=== PATIENT | female | born 1955 | race African-American/Black ===

== ENCOUNTER 2017-02-18 13:06 | Inpatient (IN) ==
[2017-02-18] MEDS ORDERED: NALOXONE 0.4 MG/ML VIAL IV PRN (13:24)
[2017-02-18] MEDS ORDERED: SODIUM CHLORIDE 0.9% 1,000 ML IV STA (13:24)
[2017-02-18] MEDS ORDERED: ALBUTEROL NEB SOLN 5 MG/ML 20 ML/BOTTLE CONT NEB STA (13:27)
[2017-02-18] MEDS ORDERED: ALBUTEROL 2.5 MG/3 ML NEB RESP TX ONE (13:33)
[2017-02-18 13:46] LABS: Basophils # 0.1 10*3/uL (0.0-0.2); Basophils % 0.6 % (0.0-0.8); Eosinophils # 0.2 10*3/uL (0.0-0.87); Eosinophils % 2.2 % (0.00-10.9); Hematocrit 41.7 VOL% (35.7-47.0); Hemoglobin 13.9 GM/DL (12.0-16.0); Immature Granulocytes % 0.3 %; Immature Granulocytes Absolute 0.03 #; Lymphocytes # 2.3 10*3/uL (1.4-4.0); Lymphocytes % 21.6 % (21.3-54.2); Mean Corpuscular HGB Conc 33.3 GM/DL (32-36); Mean Corpuscular Hemoglobin 29 PG (27-34); Mean Corpuscular Volume 86.9 FL (87-102); Mean Platelet Volume 11.4 FL (9.6-12.0); Neutrophils # 7.2 10*3/uL (1.4-7.4); Neutrophils % 66.3 % (38.7-73.9); White Blood Count 10.8 T/CUMM (4-12)
[2017-02-18 13:50] LABS: Platelet Count 192 T/CUMM (130-400)
[2017-02-18 14:04] LABS: Acetaminophen < 2.0 UG/ML (10-30); Salicylate 3.5 MG/DL (2.8-20)
[2017-02-18 14:09] LABS: Alanine Aminotransferase 26 U/L (13-56); Albumin 3.5 G/DL (3.4-5.0); Alkaline Phosphatase 94 U/L (45-117); Aspartate Amino Transferase 33 U/L (0-37); Blood Urea Nitrogen 25 MG/DL (7-18); CKMB % 2.2 %; Calcium 8.6 MG/DL (8.5-10.1); Glucose 210 MG/DL (74-106); Osmolality,Calculated 286.5 MOS/KG (273-304); Potassium 3.9 MMOL/L (3.5-5.1); Sodium 139 MMOL/L (136-145); Total Protein 6.6 G/DL (6.4-8.3); Troponin I Only 0.025 NG/ML (0.00-0.045)
[2017-02-18 14:11] LABS: Apearance,Urine Slightly Hazy (Clear); Bacteria,Urine Many /HPF (Few); Bilirubin,Urine Negative (Negative); Blood, Urine Small mg/dL (Negative); Glucose,Urine (UA) 50 mg/dL (Negative); Ketones,Urine Negative (Negative); Nitrite,Urine Negative (Negative); Protein,Urine 100 MG/DL; RBC,Urine 1 /HPF (0-4); Squamous Epithelial Cell,Urine Occasional /HPF (0-10); Urine Color Yellow (Yellow); Urine Urobilinogen < 2.0 EU/DL (0.2-1.0); WBC,Urine 25 /HPF (0-6)
[2017-02-18 14:56] LABS: Barbiturates Screen,Urine Negative (Negative); Benzodiazepines Screen,Urine Negative (Negative); Cannabinoid Screen,Urine Negative (Negative); Opiate Screen,Urine Negative (Negative); Phencyclidine Screen,Urine Negative (Negative)
[2017-02-18] MEDS ORDERED: NALOXONE 4 MG in SODIUM CHLORIDE 0.9% 90 ML IV SCH (15:00)
[2017-02-18 15:03] LABS: ABG Base Excess -4.2 MMOL/L (-2.5-2.5); ABG HCO3 20.9 MMOL/L (20-26); ABG Oxygen Saturation 96.5 % (95-100); ABG PCO2 41.7 MM HG (35-48); ABG PH 7.324 (7.35-7.45); ABG PO2 86.6 MM HG (80-95); ABG TCO2 19.1 MMOL/L (23-27)
[2017-02-18] MEDS ORDERED: ETOMIDATE 20 MG/10 ML VIAL IV ONE ×2 (15:21→20:00)
[2017-02-18] MEDS ORDERED: PROPOFOL 1,000 MG/100 ML BOTTLE IV ONE (15:51)
[2017-02-18] MEDS: PROPOFOL 1,000 MG/100 ML BOTTLE IV SCH ×2 (16:00→23:38)
[2017-02-18] MEDS: cefTRIAXone 1,000 MG in SYRINGE 1 EACH IV SCH (17:11)
[2017-02-18] MEDS ORDERED: VECURONIUM 10 MG VIAL IV ONE (20:00)
[2017-02-18] MEDS ORDERED: SUCCINYLCHOLINE 200 MG/10 ML VIAL ONE (20:01)
[2017-02-19 04:51] LABS: ABG Base Excess -2.4 MMOL/L (-2.5-2.5); ABG HCO3 22.5 MMOL/L (20-26); ABG Oxygen Saturation 98.9 % (95-100); ABG PCO2 37.4 MM HG (35-48); ABG PH 7.383 (7.35-7.45); ABG TCO2 19.3 MMOL/L (23-27); Allen Test Positive; Pt O2 Delivery Device Ventilator
[2017-02-19 04:59] LABS: Basophils % 0.3 % (0.0-0.8); Eosinophils # 0.1 10*3/uL (0.0-0.87); Eosinophils % 1.5 % (0.00-10.9); Hemoglobin 13.5 GM/DL (12.0-16.0); Immature Granulocytes % 0.3 %; Immature Granulocytes Absolute 0.03 #; Lymphocytes # 1.4 10*3/uL (1.4-4.0); Lymphocytes % 14.5 % (21.3-54.2); Mean Corpuscular HGB Conc 32.9 GM/DL (32-36); Mean Corpuscular Hemoglobin 29 PG (27-34); Mean Platelet Volume 11.4 FL (9.6-12.0); Monocytes % 9.9 % (1.7-12.7); Neutrophils % 73.5 % (38.7-73.9); Platelet Count 190 T/CUMM (130-400); Red Blood Count 4.66 MC/CUMM (3.8-5.5); White Blood Count 9.6 T/CUMM (4-12)
[2017-02-19] MEDS ORDERED: SODIUM CHLORIDE 0.9% 250 ML IV ONE (05:15)
[2017-02-19 05:21] LABS: Albumin 3.1 G/DL (3.4-5.0); Bilirubin,Total 0.4 MG/DL (0.2-1.0); Calcium 8.7 MG/DL (8.5-10.1); Total Protein 5.9 G/DL (6.4-8.3)
[2017-02-19] MEDS: SODIUM CHLORIDE 0.9% 1,000 ML IV SCH ×2 (06:06→16:00)
[2017-02-19] MEDS: PROPOFOL 1,000 MG/100 ML BOTTLE IV SCH ×3 (07:52→17:55)
[2017-02-19] MEDS: cefTRIAXone 1,000 MG in SYRINGE 1 EACH IV SCH (16:17)
[2017-02-20] MEDS: PROPOFOL 1,000 MG/100 ML BOTTLE IV SCH (01:40)
[2017-02-20] MEDS: SODIUM CHLORIDE 0.9% 1,000 ML IV SCH ×3 (01:40→21:30)
[2017-02-20 05:20] LABS: Basophils # 0.1 10*3/uL (0.0-0.2); Basophils % 0.5 % (0.0-0.8); Eosinophils # 0.2 10*3/uL (0.0-0.87); Eosinophils % 1.9 % (0.00-10.9); Hematocrit 39.4 VOL% (35.7-47.0); Hemoglobin 12.5 GM/DL (12.0-16.0); Immature Granulocytes % 0.4 %; Immature Granulocytes Absolute 0.04 #; Lymphocytes # 1.4 10*3/uL (1.4-4.0); Mean Corpuscular HGB Conc 31.7 GM/DL (32-36); Mean Corpuscular Hemoglobin 29 PG (27-34); Mean Corpuscular Volume 90.8 FL (87-102); Mean Platelet Volume 11.6 FL (9.6-12.0); Monocytes # 0.8 10*3/uL (0.11-0.8); Monocytes % 8.8 % (1.7-12.7); Neutrophils % 73.4 % (38.7-73.9); Platelet Count 165 T/CUMM (130-400); Red Blood Count 4.34 MC/CUMM (3.8-5.5); Red Cell Distribution Width 14.6 % (9.3-17.3); White Blood Count 9.6 T/CUMM (4-12)
[2017-02-20 05:46] LABS: Calcium 8.1 MG/DL (8.5-10.1); Magnesium 2.2 MG/DL (1.8-2.4); Osmolality,Calculated 286.8 MOS/KG (273-304); Potassium 4.3 MMOL/L (3.5-5.1)
[2017-02-20 07:36] LABS: ABG Base Excess -5.6 MMOL/L (-2.5-2.5); ABG HCO3 19.8 MMOL/L (20-26); ABG Oxygen Saturation 98.2 % (95-100); ABG PH 7.334 (7.35-7.45); ABG TCO2 17.5 MMOL/L (23-27); Allen Test Positive; Pt O2 Delivery Device Ventilator
[2017-02-20 10:19] LABS: ABG Base Excess -6.2 MMOL/L (-2.5-2.5); ABG HCO3 19.4 MMOL/L (20-26); ABG Oxygen Saturation 98.4 % (95-100); ABG PH 7.332 (7.35-7.45); ABG TCO2 16.9 MMOL/L (23-27)
[2017-02-20] MEDS ORDERED: traZODone 50 MG TABLET PO PRN (11:06)
[2017-02-20] MEDS: risperiDONE 1 MG TABLET PO SCH (11:45)
[2017-02-20] MEDS: BENZTROPINE 1 MG TABLET PO SCH (11:45)
[2017-02-20] MEDS: SERTRALINE 50 MG TABLET PO SCH (11:45)
[2017-02-20] MEDS: cefTRIAXone 1,000 MG in SYRINGE 1 EACH IV SCH (17:00)
[2017-02-21 05:04] LABS: Calcium 7.7 MG/DL (8.5-10.1); Magnesium 1.9 MG/DL (1.8-2.4); Potassium 4.3 MMOL/L (3.5-5.1)
[2017-02-21] MEDS ORDERED: CEFUROXIME 250 MG TABLET PO SCH (09:00)
[2017-02-21] MEDS: risperiDONE 1 MG TABLET PO SCH (09:12)
[2017-02-21] MEDS: SERTRALINE 50 MG TABLET PO SCH (09:12)
[2017-02-21] MEDS: BENZTROPINE 1 MG TABLET PO SCH (09:12)
[2017-02-21] MEDS: SODIUM CHLORIDE 0.9% 1,000 ML IV SCH (12:16)
[2017-02-21 13:52] VITALS: BP 138/71
== END 2017-02-21 16:30 | DRG 918 ==
LOC: N.ED 13:06 → N.EDINP 14:26 → N.CC 16:40
PROVIDERS: ADMIT Internal Medicine; ATTEND Internal Medicine

== ENCOUNTER 2018-07-21 08:39 | Inpatient (IN) ==
[2018-07-21] MEDS ORDERED: hydrALAZINE 20 MG/1 ML VIAL IV STA (09:24)
[2018-07-21] MEDS ORDERED: ALBUTEROL/IPRATROPIUM 3 ML NEB RESP TX STA (09:24)
[2018-07-21 10:13] LABS: Basophils # 0.1 10*3/uL (0.0-0.2); Basophils % 0.4 % (0.0-0.8); Eosinophils % 0.3 % (0.00-10.9); Hematocrit 41.2 VOL% (35.7-47.0); Hemoglobin 12.5 GM/DL (12.0-16.0); Immature Granulocytes % 0.6 %; Immature Granulocytes Absolute 0.09 #; Lymphocytes # 1.1 10*3/uL (1.4-4.0); Lymphocytes % 7.6 % (21.3-54.2); Mean Corpuscular HGB Conc 30.3 GM/DL (32-36); Mean Corpuscular Volume 93.4 FL (87-102); Mean Platelet Volume 11.3 FL (9.6-12.0); Monocytes % 7.5 % (1.7-12.7); Neutrophils % 83.6 % (38.7-73.9); Platelet Count 187 T/CUMM (130-400); Red Blood Count 4.41 MC/CUMM (3.8-5.5); Red Cell Distribution Width 13.8 % (9.3-17.3); White Blood Count 14.2 T/CUMM (4-12)
[2018-07-21 10:30] LABS: Calcium 8.9 MG/DL (8.5-10.1); Osmolality,Calculated 282.5 MOS/KG (273-304)
[2018-07-21] MEDS ORDERED: cefTRIAXone 1,000 MG in SODIUM CHLORIDE 0.9% 100 ML IV STA (10:40)
[2018-07-21] MEDS ORDERED: SODIUM CHLORIDE 0.9% 1,000 ML IV STA (10:41)
[2018-07-21] MEDS ORDERED: cefTRIAXone 1,000 MG in SYRINGE 1 EACH IV STA (10:44)
[2018-07-21] MEDS ORDERED: ONDANSETRON 4 MG/2 ML VIAL IV PRN (10:49)
[2018-07-21] MEDS ORDERED: PROMETHAZINE 25 MG/1 ML VIAL IM PRN (10:49)
[2018-07-21] MEDS ORDERED: ACETAMINOPHEN 325 MG TABLET PO PRN (10:49)
[2018-07-21] MEDS ORDERED: ALBUTEROL 2.5 MG/3 ML NEB RESP TX PRN (10:56)
[2018-07-21] MEDS: DORNASE ALFA 2.5 MG/2.5 ML VIAL RESP TX SCH ×2 (11:01→19:12)
[2018-07-21] MEDS: ALBUTEROL/IPRATROPIUM 3 ML NEB RESP TX SCH ×2 (11:01→19:12)
[2018-07-21] MEDS: guaiFENesin/DM ER 600-30 MG TABLET PO SCH ×2 (13:38→21:59)
[2018-07-21] MEDS: PANTOPRAZOLE 40 MG TABLET PO SCH (13:38)
[2018-07-21] MEDS: risperiDONE 1 MG TABLET PO SCH (13:38)
[2018-07-21] MEDS: SODIUM CHLORIDE 0.9% 1,000 ML IV SCH ×2 (13:44→22:26)
[2018-07-21] MEDS: CLINDAMYCIN INJ 600 MG in PREMIX 1 EACH IV SCH ×2 (13:45→21:59)
[2018-07-21] MEDS: NEBIVOLOL 5 MG TABLET PO SCH (15:14)
[2018-07-21] MEDS: OLANZapine 5 MG TABLET PO SCH (15:14)
[2018-07-21] MEDS: LEVOFLOXACIN INJ 750 MG in PREMIX 1 EACH IV SCH (15:14)
[2018-07-21] MEDS: chlordiazePOXIDE 10 MG CAPSULE PO SCH ×2 (15:14→21:59)
[2018-07-22] MEDS: ALBUTEROL/IPRATROPIUM 3 ML NEB RESP TX SCH ×4 (00:56→18:40)
[2018-07-22 05:22] LABS: Basophils % 0.4 % (0.0-0.8); Eosinophils # 0.1 10*3/uL (0.0-0.87); Eosinophils % 0.7 % (0.00-10.9); Hematocrit 34.9 VOL% (35.7-47.0); Hemoglobin 10.5 GM/DL (12.0-16.0); Immature Granulocytes % 0.5 %; Immature Granulocytes Absolute 0.05 #; Lymphocytes # 1.2 10*3/uL (1.4-4.0); Mean Corpuscular HGB Conc 30.1 GM/DL (32-36); Mean Corpuscular Volume 93.8 FL (87-102); Mean Platelet Volume 11.8 FL (9.6-12.0); Neutrophils % 79.4 % (38.7-73.9); Platelet Count 168 T/CUMM (130-400); Red Blood Count 3.72 MC/CUMM (3.8-5.5); Red Cell Distribution Width 14.1 % (9.3-17.3); White Blood Count 10.9 T/CUMM (4-12)
[2018-07-22] MEDS: CLINDAMYCIN INJ 600 MG in PREMIX 1 EACH IV SCH ×3 (05:44→20:56)
[2018-07-22 05:54] LABS: Albumin 2.3 G/DL (3.4-5.0); Bilirubin,Total 0.4 MG/DL (0.2-1.0); Calcium 8.2 MG/DL (8.5-10.1); Total Protein 5.5 G/DL (6.4-8.3)
[2018-07-22] MEDS: SODIUM CHLORIDE 0.9% 1,000 ML IV SCH ×4 (06:20→17:35)
[2018-07-22] MEDS: DORNASE ALFA 2.5 MG/2.5 ML VIAL RESP TX SCH ×2 (07:51→18:40)
[2018-07-22] MEDS: chlordiazePOXIDE 10 MG CAPSULE PO SCH ×3 (08:11→20:55)
[2018-07-22] MEDS: OLANZapine 5 MG TABLET PO SCH (08:11)
[2018-07-22] MEDS: guaiFENesin/DM ER 600-30 MG TABLET PO SCH ×2 (08:11→20:55)
[2018-07-22] MEDS: risperiDONE 1 MG TABLET PO SCH (08:11)
[2018-07-22] MEDS: PANTOPRAZOLE 40 MG TABLET PO SCH (08:11)
[2018-07-22] MEDS: NEBIVOLOL 5 MG TABLET PO SCH (08:11)
[2018-07-22] MEDS: traZODone 50 MG TABLET PO PRN (20:55)
[2018-07-23] MEDS: ALBUTEROL/IPRATROPIUM 3 ML NEB RESP TX SCH ×4 (00:10→18:55)
[2018-07-23] MEDS: SODIUM CHLORIDE 0.9% 1,000 ML IV SCH ×4 (01:51→20:23)
[2018-07-23] MEDS: CLINDAMYCIN INJ 600 MG in PREMIX 1 EACH IV SCH ×3 (05:42→20:50)
[2018-07-23] MEDS: DORNASE ALFA 2.5 MG/2.5 ML VIAL RESP TX SCH ×2 (07:06→18:55)
[2018-07-23 07:13] LABS: Basophils % 0.2 % (0.0-0.8); Eosinophils # 0.1 10*3/uL (0.0-0.87); Eosinophils % 1.6 % (0.00-10.9); Hematocrit 35.2 VOL% (35.7-47.0); Hemoglobin 10.6 GM/DL (12.0-16.0); Immature Granulocytes % 0.5 %; Immature Granulocytes Absolute 0.04 #; Lymphocytes # 1.1 10*3/uL (1.4-4.0); Lymphocytes % 12.9 % (21.3-54.2); Mean Corpuscular HGB Conc 30.1 GM/DL (32-36); Mean Corpuscular Volume 93.4 FL (87-102); Mean Platelet Volume 10.6 FL (9.6-12.0); Monocytes % 9.9 % (1.7-12.7); Neutrophils % 74.9 % (38.7-73.9); Platelet Count 175 T/CUMM (130-400); Red Blood Count 3.77 MC/CUMM (3.8-5.5); Red Cell Distribution Width 14.2 % (9.3-17.3); White Blood Count 8.1 T/CUMM (4-12)
[2018-07-23 07:36] LABS: Calcium 8.8 MG/DL (8.5-10.1); Osmolality,Calculated 293.7 MOS/KG (273-304)
[2018-07-23] MEDS: OLANZapine 5 MG TABLET PO SCH (08:23)
[2018-07-23] MEDS: guaiFENesin/DM ER 600-30 MG TABLET PO SCH ×2 (08:23→20:22)
[2018-07-23] MEDS: risperiDONE 1 MG TABLET PO SCH (08:23)
[2018-07-23] MEDS: PANTOPRAZOLE 40 MG TABLET PO SCH (08:23)
[2018-07-23] MEDS: NEBIVOLOL 5 MG TABLET PO SCH (08:23)
[2018-07-23] MEDS: chlordiazePOXIDE 10 MG CAPSULE PO SCH ×3 (08:23→20:22)
[2018-07-23] MEDS: LEVOFLOXACIN INJ 750 MG in PREMIX 1 EACH IV SCH (15:17)
[2018-07-23] MEDS: traZODone 50 MG TABLET PO PRN (20:22)
[2018-07-24] MEDS: ALBUTEROL/IPRATROPIUM 3 ML NEB RESP TX SCH ×2 (00:15→07:32)
[2018-07-24] MEDS: CLINDAMYCIN INJ 600 MG in PREMIX 1 EACH IV SCH (05:35)
[2018-07-24] MEDS: SODIUM CHLORIDE 0.9% 1,000 ML IV SCH (06:12)
[2018-07-24] MEDS: DORNASE ALFA 2.5 MG/2.5 ML VIAL RESP TX SCH (07:32)
[2018-07-24] MEDS: NEBIVOLOL 5 MG TABLET PO SCH (08:06)
[2018-07-24] MEDS: OLANZapine 5 MG TABLET PO SCH (08:06)
[2018-07-24] MEDS: guaiFENesin/DM ER 600-30 MG TABLET PO SCH (08:06)
[2018-07-24] MEDS: chlordiazePOXIDE 10 MG CAPSULE PO SCH (08:06)
[2018-07-24] MEDS: risperiDONE 1 MG TABLET PO SCH (08:06)
[2018-07-24] MEDS: PANTOPRAZOLE 40 MG TABLET PO SCH (08:06)
[2018-07-24] MEDS ORDERED: hydrALAZINE 20 MG/1 ML VIAL IV ONE (09:27)
[2018-07-24] MEDS ORDERED: amLODIPine 10 MG TABLET PO ONE (09:27)
[2018-07-24 13:24] VITALS: BP 154/81
== END 2018-07-24 13:30 | disposition left against medical advice (07) | DRG 178 ==
LOC: N.ED 08:39 → N.EDINP 10:46 → SUATTDRO 10:47 → N.5E 11:22
PROVIDERS: ADMIT Family Medicine; ATTEND Internal Medicine

== ENCOUNTER 2018-09-22 17:42 | Inpatient (IN) ==
[2018-09-22] MEDS ORDERED: ALBUTEROL/IPRATROPIUM 3 ML NEB RESP TX STA (19:20)
[2018-09-22] MEDS ORDERED: VANCOMYCIN INJ 1,000 MG in SODIUM CHLORIDE 0.9% 250 ML IV STA (19:24)
[2018-09-22] MEDS ORDERED: CEFEPIME 2,000 MG in SODIUM CHLORIDE 0.9% 100 ML IV STA ×2 (19:24→19:26)
[2018-09-22 19:25] LABS: Basophils % 0.3 % (0.0-0.8); Eosinophils # 0.1 10*3/uL (0.0-0.87); Eosinophils % 0.6 % (0.00-10.9); Hematocrit 45.6 VOL% (35.7-47.0); Hemoglobin 13.9 GM/DL (12.0-16.0); Immature Granulocytes % 0.3 %; Immature Granulocytes Absolute 0.03 #; Lymphocytes # 1.3 10*3/uL (1.4-4.0); Lymphocytes % 12.9 % (21.3-54.2); Mean Corpuscular HGB Conc 30.5 GM/DL (32-36); Mean Corpuscular Volume 91.9 FL (87-102); Mean Platelet Volume 11.1 FL (9.6-12.0); Monocytes % 6.6 % (1.7-12.7); Neutrophils % 79.3 % (38.7-73.9); Platelet Count 189 T/CUMM (130-400); Red Blood Count 4.96 MC/CUMM (3.8-5.5)
[2018-09-22 19:48] LABS: Albumin 3.4 G/DL (3.4-5.0); Bilirubin,Total 0.4 MG/DL (0.2-1.0); Calcium 8.8 MG/DL (8.5-10.1); Osmolality,Calculated 280.4 MOS/KG (273-304); Total Protein 7.6 G/DL (6.4-8.3)
[2018-09-22] MEDS ORDERED: hydrALAZINE 20 MG/1 ML VIAL IV STA ×2 (20:02→20:52)
[2018-09-22] MEDS ORDERED: LABETALOL 100 MG/20 ML VIAL IV STA (21:19)
[2018-09-22] MEDS ORDERED: FAMOTIDINE 20 MG/2 ML VIAL IV STA (21:56)
[2018-09-22] MEDS ORDERED: diphenhydrAMINE 50 MG/1 ML VIAL IV STA (21:57)
[2018-09-22] MEDS ORDERED: diphenhydrAMINE CAP 25 MG CAPSULE PO PRN (22:57)
[2018-09-22] MEDS ORDERED: ACETAMINOPHEN 325 MG TABLET PO PRN (22:57)
[2018-09-22] MEDS ORDERED: MORPHINE 4 MG/1 ML VIAL IV PRN (22:57)
[2018-09-22] MEDS ORDERED: NICOTINE 21 MG/24 HR PATCH TRANSDERM PRN (22:57)
[2018-09-22] MEDS ORDERED: LABETALOL 100 MG/20 ML VIAL IV PRN (22:57)
[2018-09-22] MEDS ORDERED: ONDANSETRON 4 MG/2 ML VIAL IV PRN (22:57)
[2018-09-23] MEDS: ALBUTEROL/IPRATROPIUM 3 ML NEB RESP TX SCH ×4 (00:05→19:42)
[2018-09-23] MEDS ORDERED: dilTIAZem Drip 125 MG/125 ML PREMIX IV SCH (00:30)
[2018-09-23] MEDS: methylPREDNISolone SOD SUC 40 MG/1 ML VIAL IV SCH ×3 (01:00→14:05)
[2018-09-23] MEDS: LEVOFLOXACIN INJ 750 MG in PREMIX 1 EACH IV SCH (01:11)
[2018-09-23] MEDS: SODIUM CHLORIDE 0.9% 250 ML IV SCH ×2 (04:25→15:11)
[2018-09-23 05:06] LABS: Basophils # 0.1 10*3/uL (0.0-0.2); Basophils % 0.4 % (0.0-0.8); Hematocrit 42.8 VOL% (35.7-47.0); Hemoglobin 13.5 GM/DL (12.0-16.0); Immature Granulocytes % 0.4 %; Immature Granulocytes Absolute 0.05 #; Lymphocytes # 0.4 10*3/uL (1.4-4.0); Lymphocytes % 3.3 % (21.3-54.2); Mean Corpuscular HGB Conc 31.5 GM/DL (32-36); Mean Corpuscular Volume 90.7 FL (87-102); Mean Platelet Volume 12.1 FL (9.6-12.0); Monocytes % 1.6 % (1.7-12.7); Neutrophils % 94.3 % (38.7-73.9); Platelet Count 185 T/CUMM (130-400); Red Blood Count 4.72 MC/CUMM (3.8-5.5); Red Cell Distribution Width 14.1 % (9.3-17.3); White Blood Count 11.9 T/CUMM (4-12)
[2018-09-23 05:40] LABS: Albumin 3.2 G/DL (3.4-5.0); Bilirubin,Total 0.9 MG/DL (0.2-1.0); Calcium 9.2 MG/DL (8.5-10.1); Osmolality,Calculated 279.7 MOS/KG (273-304); Risk Ratio 2.55; Thyroid Stimulating Hormone 2.12 uIU/ml (0.358-3.74); Total Protein 7.3 G/DL (6.4-8.3); VLDL CHOLESTEROL 13.4 MG/DL
[2018-09-23 05:48] LABS: Band Neutrophils 1 % (0-10); Hypochromasia 1+; Lymphocytes 2 % (20-55); Platelet Estimate Adequate; Segmented Neutrophils 94 % (50-85); Total Cells Counted 100
[2018-09-23] MEDS ORDERED: niCARdipine INJ 25 MG in SODIUM CHLORIDE 0.9% 240 ML IV PRN (05:54)
[2018-09-23 05:56] LABS: Apearance,Urine CLEAR (Clear); Bacteria,Urine Occasional /HPF (Few); Bilirubin,Urine Negative (Negative); Blood, Urine Negative (Negative); Glucose,Urine (UA) Negative (Negative); Ketones,Urine Negative (Negative); Mucus,Urine Occasional /LPF (Occasional); Nitrite,Urine Negative (Negative); Protein,Urine 100 MG/DL; RBC,Urine 2 /HPF (0-4); Squamous Epithelial Cell,Urine Occasional /HPF (0-10); Urine Color Yellow (Yellow); Urine Specific Gravity 1.012 (1.001-1.035); Urine Urobilinogen < 2.0 EU/DL (0.2-1.0); WBC,Urine 6 /HPF (0-6)
[2018-09-23] MEDS: amLODIPine 10 MG TABLET PO SCH (08:38)
[2018-09-23] MEDS: ITRACONAZOLE 100 MG CAPSULE PO SCH ×2 (08:38→20:08)
[2018-09-23] MEDS: PANTOPRAZOLE 40 MG TABLET PO SCH (08:38)
[2018-09-23] MEDS ORDERED: NEBIVOLOL 5 MG TABLET PO SCH (09:00)
[2018-09-23] MEDS ORDERED: hydrALAZINE 20 MG/1 ML VIAL IV PRN (11:51)
[2018-09-23] MEDS ORDERED: BUDESONIDE INH SCH ×2 (13:29→14:00)
[2018-09-23] MEDS: NEBIVOLOL 5 MG TABLET PO SCH (20:08)
[2018-09-23] MEDS: traZODone 50 MG TABLET PO PRN (20:08)
[2018-09-23] MEDS: guaiFENesin/DM ER 600-30 MG TABLET PO PRN (20:08)
[2018-09-24] MEDS: methylPREDNISolone SOD SUC 40 MG/1 ML VIAL IV SCH ×4 (00:15→23:14)
[2018-09-24] MEDS: ALBUTEROL/IPRATROPIUM 3 ML NEB RESP TX SCH ×4 (00:48→19:30)
[2018-09-24 06:31] LABS: Calcium 9.3 MG/DL (8.5-10.1); Osmolality,Calculated 294.4 MOS/KG (273-304)
[2018-09-24] MEDS: SODIUM CHLORIDE 0.9% 250 ML IV SCH ×3 (08:21→20:24)
[2018-09-24] MEDS: ITRACONAZOLE 100 MG CAPSULE PO SCH (09:00)
[2018-09-24] MEDS: PANTOPRAZOLE 40 MG TABLET PO SCH (09:01)
[2018-09-24] MEDS: NEBIVOLOL 5 MG TABLET PO SCH ×2 (09:01→20:19)
[2018-09-24] MEDS: amLODIPine 10 MG TABLET PO SCH (09:01)
[2018-09-24 16:48] LABS: Protein/Creatinine Ratio,Urine 0.5 RATIO
[2018-09-24] MEDS ORDERED: BISACODYL 10 MG SUPP RECTAL PRN (17:52)
[2018-09-24] MEDS: LACTULOSE 20 GM/30 ML UDCUP PO PRN (18:10)
[2018-09-24] MEDS: traZODone 50 MG TABLET PO PRN (20:19)
[2018-09-24] MEDS: risperiDONE 1 MG TABLET PO SCH (20:19)
[2018-09-24] MEDS: guaiFENesin/DM ER 600-30 MG TABLET PO PRN (20:19)
[2018-09-24] MEDS: LEVOFLOXACIN INJ 750 MG in PREMIX 1 EACH IV SCH (23:14)
[2018-09-25] MEDS: ALBUTEROL/IPRATROPIUM 3 ML NEB RESP TX SCH ×4 (00:59→19:10)
[2018-09-25 06:10] LABS: Calcium 8.3 MG/DL (8.5-10.1); Osmolality,Calculated 299.5 MOS/KG (273-304)
[2018-09-25] MEDS: methylPREDNISolone SOD SUC 40 MG/1 ML VIAL IV SCH ×2 (06:11→21:47)
[2018-09-25] MEDS: SODIUM CHLORIDE 0.9% 250 ML IV SCH ×2 (08:11→17:26)
[2018-09-25] MEDS: amLODIPine 10 MG TABLET PO SCH (08:39)
[2018-09-25] MEDS: NEBIVOLOL 5 MG TABLET PO SCH ×2 (08:40→21:47)
[2018-09-25] MEDS: PANTOPRAZOLE 40 MG TABLET PO SCH (08:40)
[2018-09-25] MEDS: risperiDONE 1 MG TABLET PO SCH (21:47)
[2018-09-25] MEDS: traZODone 50 MG TABLET PO PRN (21:48)
[2018-09-26] MEDS: ALBUTEROL/IPRATROPIUM 3 ML NEB RESP TX SCH ×4 (00:32→19:19)
[2018-09-26] MEDS: SODIUM CHLORIDE 0.9% 250 ML IV SCH ×2 (05:11→17:24)
[2018-09-26] MEDS: amLODIPine 10 MG TABLET PO SCH (08:42)
[2018-09-26] MEDS: LACTULOSE 20 GM/30 ML UDCUP PO PRN (08:42)
[2018-09-26] MEDS: NEBIVOLOL 5 MG TABLET PO SCH ×2 (08:42→20:21)
[2018-09-26] MEDS: PANTOPRAZOLE 40 MG TABLET PO SCH (08:42)
[2018-09-26] MEDS: methylPREDNISolone SOD SUC 40 MG/1 ML VIAL IV SCH ×2 (08:42→20:17)
[2018-09-26] MEDS ORDERED: LEVOFLOXACIN INJ 500 MG in PREMIX 1 EACH IV SCH (09:00)
[2018-09-26] MEDS: risperiDONE 1 MG TABLET PO SCH (20:21)
[2018-09-26] MEDS: traZODone 50 MG TABLET PO PRN (20:24)
[2018-09-27] MEDS: ALBUTEROL/IPRATROPIUM 3 ML NEB RESP TX SCH ×3 (02:07→12:15)
[2018-09-27] MEDS: SODIUM CHLORIDE 0.9% 250 ML IV SCH (07:48)
[2018-09-27] MEDS: amLODIPine 10 MG TABLET PO SCH (08:41)
[2018-09-27] MEDS: NEBIVOLOL 5 MG TABLET PO SCH (08:41)
[2018-09-27] MEDS: methylPREDNISolone SOD SUC 40 MG/1 ML VIAL IV SCH (08:42)
[2018-09-27] MEDS: PANTOPRAZOLE 40 MG TABLET PO SCH (08:42)
[2018-09-27 11:45] VITALS: BP 114/72
== END 2018-09-27 15:00 | disposition home health service (06) | DRG 304 ==
LOC: N.ED 17:42 → SUATTDRO 22:58 → N.EDINP 22:58 → N.ICU 09-23 00:40 → N.5E 09-23 13:55
PROVIDERS: ADMIT Internal Medicine; ATTEND Internal Medicine Cardiovascular Disease

== ENCOUNTER 2020-05-31 03:57 | Inpatient (IN) ==
[2020-05-31] MEDS ORDERED: ONDANSETRON 4 MG/2 ML VIAL IV STA (04:21)
[2020-05-31] MEDS ORDERED: ALBUTEROL/IPRATROPIUM 3 ML NEB RESP TX STA (04:21)
[2020-05-31] MEDS ORDERED: NITROGLYCERIN 2% OINT 1 INCH/GM PACK TOP STA (04:21)
[2020-05-31] MEDS ORDERED: methylPREDNISolone SOD SUC 125 MG/2 ML VIAL IV STA (04:21)
[2020-05-31] MEDS ORDERED: MORPHINE 4 MG/1 ML VIAL IV STA (04:21)
[2020-05-31] MEDS ORDERED: hydrALAZINE 20 MG/1 ML VIAL IV STA ×2 (04:21→05:22)
[2020-05-31] MEDS ORDERED: FUROSEMIDE 40 MG/4 ML VIAL IV STA (04:21)
[2020-05-31 05:11] LABS: Basophils # 0.1 10*3/uL (0.0-0.2); Basophils % 0.6 % (0.0-0.8); Eosinophils # 0.2 10*3/uL (0.0-0.87); Eosinophils % 2.2 % (0.00-10.9); Hemoglobin 11.2 GM/DL (12.0-16.0); Immature Granulocytes % 0.4 %; Immature Granulocytes Absolute 0.04 #; Lymphocytes % 11.1 % (21.3-54.2); Mean Corpuscular HGB Conc 30.3 GM/DL (32-36); Mean Corpuscular Volume 93.4 FL (87-102); Mean Platelet Volume 11.3 FL (9.6-12.0); Monocytes % 6.2 % (1.7-12.7); Neutrophils % 79.5 % (38.7-73.9); Platelet Count 239 T/CUMM (130-400); Red Blood Count 3.96 MC/CUMM (3.8-5.5); Red Cell Distribution Width 15.3 % (9.3-17.3); White Blood Count 9.3 T/CUMM (4-12)
[2020-05-31] MEDS ORDERED: niCARdipine INJ 25 MG in SODIUM CHLORIDE 0.9% 240 ML IV PRN (05:14)
[2020-05-31 05:34] LABS: Alanine Aminotransferase 36 U/L (13-56); Albumin 3.6 G/DL (3.4-5.0); Alkaline Phosphatase 204 U/L (45-117); Aspartate Amino Transferase 27 U/L (0-37); Blood Urea Nitrogen 58 MG/DL (7-18); Carbon Dioxide 19 MMOL/L (21-32); Estimated Glom Filtration Rate 7 ML/MIN; Glucose 84 MG/DL (74-106); Osmolality,Calculated 295.3 MOS/KG (273-304); Potassium 4.3 MMOL/L (3.5-5.1); Sodium 141 MMOL/L (136-145); Total Protein 7.1 G/DL (6.4-8.2); Troponin I 0.082 NG/ML (0.00-0.045)
[2020-05-31 05:39] LABS: Bacteria,Urine Occasional /HPF (Few); Bilirubin,Urine Negative (Negative); Blood, Urine Negative (Negative); Glucose,Urine (UA) Negative (Negative); Ketones,Urine Negative (Negative); Nitrite,Urine Negative (Negative); Protein,Urine 100 MG/DL; RBC,Urine 5 /HPF (0-4); Squamous Epithelial Cell,Urine Occasional /HPF (0-10); Urine Appearance CLEAR (Clear); Urine Color Straw (Yellow); Urine Specific Gravity 1.009 (1.001-1.035); Urine Urobilinogen < 2.0 EU/DL (0.2-1.0); WBC,Urine 2 /HPF (0-6)
[2020-05-31 05:47] LABS: INR 1.1; PT Patient Result 11.4 SECS (9.8-11.9)
[2020-05-31 06:05] LABS: Barbiturates Screen,Urine Negative (Negative); Benzodiazepines Screen,Urine Negative (Negative); Cannabinoid Screen,Urine Negative (Negative); Opiate Screen,Urine Negative (Negative); Phencyclidine Screen,Urine Negative (Negative)
[2020-05-31] MEDS ORDERED: LACTATED RINGERS 500 ML IV ONE (06:08)
[2020-05-31] MEDS ORDERED: ACETAMINOPHEN 325 MG TABLET PO PRN (07:27)
[2020-05-31] MEDS ORDERED: ALBUTEROL 2.5 MG/3 ML NEB RESP TX PRN ×2 (07:27→15:39)
[2020-05-31] MEDS ORDERED: ONDANSETRON 4 MG/2 ML VIAL IV PRN (07:27)
[2020-05-31] MEDS ORDERED: DOCUSATE SODIUM 100 MG CAPSULE PO PRN (07:27)
[2020-05-31] MEDS ORDERED: hydrALAZINE 20 MG/1 ML VIAL IV PRN (07:30)
[2020-05-31] MEDS: PANTOPRAZOLE 40 MG TABLET PO SCH (09:15)
[2020-05-31] MEDS: amLODIPine 10 MG TABLET PO SCH (09:15)
[2020-05-31] MEDS ORDERED: INFLUENZA VIRUS VACCINE 0.5 ML SYRINGE IM ONE (12:50)
[2020-05-31] MEDS: cloNIDine 0.1 MG TABLET PO SCH ×2 (16:20→21:51)
[2020-06-01 05:59] LABS: Basophils % 0.3 % (0.0-0.8); Eosinophils # 0.1 10*3/uL (0.0-0.87); Eosinophils % 0.7 % (0.00-10.9); Hematocrit 31.3 VOL% (35.7-47.0); Hemoglobin 9.5 GM/DL (12.0-16.0); Immature Granulocytes % 0.9 %; Lymphocytes # 1.3 10*3/uL (1.4-4.0); Lymphocytes % 11.2 % (21.3-54.2); Mean Corpuscular HGB Conc 30.4 GM/DL (32-36); Mean Corpuscular Volume 94.3 FL (87-102); Mean Platelet Volume 12.2 FL (9.6-12.0); Monocytes % 7.3 % (1.7-12.7); Neutrophils % 79.6 % (38.7-73.9); Platelet Count 213 T/CUMM (130-400); Red Blood Count 3.32 MC/CUMM (3.8-5.5); Red Cell Distribution Width 15.4 % (9.3-17.3); White Blood Count 11.2 T/CUMM (4-12)
[2020-06-01 06:01] LABS: Uric Acid 7.7 MG/DL (2.6-6.0)
[2020-06-01 06:02] LABS: Calcium 7.9 MG/DL (8.5-10.1); Osmolality,Calculated 300.4 MOS/KG (273-304); Potassium 4.4 MMOL/L (3.5-5.1)
[2020-06-01] MEDS: cloNIDine 0.1 MG TABLET PO SCH ×3 (08:41→20:34)
[2020-06-01] MEDS: amLODIPine 10 MG TABLET PO SCH (08:41)
[2020-06-01] MEDS: PANTOPRAZOLE 40 MG TABLET PO SCH (08:41)
[2020-06-01] MEDS: SEVELAMER CARBONATE 800 MG TABLET PO SCH (16:49)
[2020-06-02 04:50] LABS: ABG Base Excess -7.5 MMOL/L (-2.5-2.5); ABG HCO3 18.3 MMOL/L (20-26); ABG Oxygen Saturation 96.5 % (95-100); ABG PCO2 36.6 MM HG (35-48); ABG PH 7.304 (7.35-7.45); ABG PO2 83.8 MM HG (80-95); ABG TCO2 16.8 MMOL/L (23-27)
[2020-06-02 05:42] LABS: Basophils # 0.1 10*3/uL (0.0-0.2); Basophils % 0.8 % (0.0-0.8); Eosinophils # 0.1 10*3/uL (0.0-0.87); Eosinophils % 2.2 % (0.00-10.9); Hematocrit 29.8 VOL% (35.7-47.0); Hemoglobin 9.3 GM/DL (12.0-16.0); Immature Granulocytes % 0.3 %; Immature Granulocytes Absolute 0.02 #; Lymphocytes # 1.4 10*3/uL (1.4-4.0); Lymphocytes % 21.2 % (21.3-54.2); Mean Corpuscular HGB Conc 31.2 GM/DL (32-36); Mean Corpuscular Volume 91.7 FL (87-102); Mean Platelet Volume 11.9 FL (9.6-12.0); Neutrophils % 68.5 % (38.7-73.9); Platelet Count 222 T/CUMM (130-400); Red Blood Count 3.25 MC/CUMM (3.8-5.5); Red Cell Distribution Width 15.8 % (9.3-17.3); White Blood Count 6.5 T/CUMM (4-12)
[2020-06-02 06:07] LABS: Alanine Aminotransferase 15 U/L (13-56); Albumin 2.7 G/DL (3.4-5.0); Alkaline Phosphatase 144 U/L (45-117); Aspartate Amino Transferase 10 U/L (0-37); Bilirubin,Total < 0.39 MG/DL (0.2-1.0); Blood Urea Nitrogen 73 MG/DL (7-18); Calcium 8.1 MG/DL (8.5-10.1); Carbon Dioxide 16 MMOL/L (21-32); Estimated Glom Filtration Rate 7 ML/MIN; Glucose 86 MG/DL (74-106); Immunoglobulin A 215 MG/DL (70-400); Immunoglobulin G 676 MG/DL (700-1600); Immunoglobulin M 40 MG/DL (40-230); Osmolality,Calculated 299.4 MOS/KG (273-304); Potassium 4.6 MMOL/L (3.5-5.1); Sodium 140 MMOL/L (136-145); Total Protein 5.5 G/DL (6.4-8.2)
[2020-06-02 08:11] LABS: Immunoglobulin A (Chem) 215 MG/DL (70-400); Immunoglobulin G (Chem) 676 MG/DL (700-1600); Immunoglobulin M (Chem) 40 MG/DL (40-230); Total Protein (Chem) 5.5 G/DL (6.4-8.3)
[2020-06-02] MEDS: SEVELAMER CARBONATE 800 MG TABLET PO SCH ×3 (09:01→17:39)
[2020-06-02] MEDS: cloNIDine 0.1 MG TABLET PO SCH ×3 (09:02→20:39)
[2020-06-02] MEDS: PANTOPRAZOLE 40 MG TABLET PO SCH (09:02)
[2020-06-02] MEDS: amLODIPine 10 MG TABLET PO SCH (09:02)
[2020-06-02 09:05] LABS: Albumin (SPE) 3.5 G/DL (3.2-5.3); Alpha 1 (SPE) 0.2 G/DL (0.1-0.4); Alpha 2 (SPE) 0.6 G/DL (0.4-1.0); Alpha 2 (SPE) Rel % 10.5 %; Beta (SPE) 0.6 G/DL (0.5-1.1); Beta (SPE) Rel % 11.2 %; Gamma (SPE) 0.6 G/DL (0.7-1.7); Gamma (SPE) Rel % 11.3 %
[2020-06-02] MEDS: SODIUM BICARBONATE 650 MG TABLET PO SCH (20:39)
[2020-06-03 05:43] LABS: % Iron Saturation 20.5 % (18-50)
[2020-06-03 05:50] LABS: Calcium 8.3 MG/DL (8.5-10.1); Osmolality,Calculated 305.1 MOS/KG (273-304); Potassium 4.7 MMOL/L (3.5-5.1)
[2020-06-03 08:00] LABS: Folate 9.4 NG/ML (5.38-24.0)
[2020-06-03 08:28] LABS: Total Protein,Urine Random 76 MG/DL
[2020-06-03 08:32] LABS: Protein/Creatinine Ratio,Urine 1.2 RATIO
[2020-06-03] MEDS: SEVELAMER CARBONATE 800 MG TABLET PO SCH ×2 (08:51→15:32)
[2020-06-03] MEDS: cloNIDine 0.1 MG TABLET PO SCH ×2 (08:51→16:15)
[2020-06-03] MEDS: SODIUM BICARBONATE 650 MG TABLET PO SCH ×2 (08:51→16:15)
[2020-06-03] MEDS: PANTOPRAZOLE 40 MG TABLET PO SCH (08:52)
[2020-06-03] MEDS: amLODIPine 10 MG TABLET PO SCH (08:52)
[2020-06-03] MEDS ORDERED: DIAZEPAM 5 MG TABLET PO ONE (09:30)
[2020-06-03 09:41] LABS: Immuno Free Light Chain Kappa 12.58 MG/DL (0.33-1.94); Immuno Free Light Chain Lambda 7.49 MG/DL (0.57-2.63); Immuno Free Light Chain Ratio 1.68 MG/DL (0.26-1.65)
[2020-06-03 11:34] LABS: Total Protein 24 Hr Ur Result 988 MG/24HR (0-149.1); Total Volume,Urine 1300 ML (400-2000)
[2020-06-03 15:39] VITALS: BP 159/66
[2020-06-03] MEDS ORDERED: calcitrioL 0.25 MCG CAPSULE PO SCH (17:00)
[2020-06-07 06:59] LABS: 24 Hr Protein (Bench) 988 MG/24HR (0-149.1)
[2020-06-07 07:01] LABS: Random Urine Protein (Bench) 76 MG/DL (<11.9)
[2020-06-07 08:28] LABS: Albumin (UPE) Rel % 75.8 %; Alpha 1 (UPE) Rel % 5.1 %; Alpha 2 (UPE) Rel % 4.8 %; Beta (UPE) Rel % 5.4 %; Gamma (UPE) Rel % 8.9 %
[2020-06-07 08:33] LABS: Albumin (UPE) 748.9 MG/24H
[2020-06-07 08:34] LABS: Alpha 1 (UPE) 50.4 MG/24H; Alpha 2 (UPE) 47.4 MG/24H; Beta (UPE) 53.4 MG/24H; Gamma (UPE) 87.9 MG/24H
== END 2020-06-03 16:14 | disposition home or self-care (01) | DRG 683 ==
LOC: EDUNIT# → N.ED 03:57 → N.EDINP 03:57 → N.5E 11:13
PROVIDERS: ADMIT Internal Medicine; ATTEND Internal Medicine

== ENCOUNTER 2020-06-16 04:09 | Inpatient (IN) ==
[2020-06-16] MEDS ORDERED: hydrALAZINE 20 MG/1 ML VIAL IV STA ×2 (04:29→05:09)
[2020-06-16] MEDS ORDERED: NITROGLYCERIN 2% OINT 1 INCH/GM PACK TOP STA (04:29)
[2020-06-16] MEDS ORDERED: ASPIRIN 325 MG TABLET PO STA (04:29)
[2020-06-16] MEDS ORDERED: methylPREDNISolone SOD SUC 125 MG/2 ML VIAL IV STA (04:29)
[2020-06-16] MEDS ORDERED: ONDANSETRON 4 MG/2 ML VIAL IV STA (04:29)
[2020-06-16] MEDS ORDERED: FUROSEMIDE 100 MG/10 ML VIAL IV STA (04:29)
[2020-06-16] MEDS ORDERED: MORPHINE 4 MG/1 ML VIAL IV STA (04:30)
[2020-06-16] MEDS ORDERED: ALBUTEROL NEB SOLN 5 MG/ML 20 ML/BOTTLE CONT NEB SCH (04:30)
[2020-06-16 04:41] LABS: Basophils % 0.5 % (0.0-0.8); Eosinophils # 0.2 10*3/uL (0.0-0.87); Eosinophils % 1.8 % (0.00-10.9); Hematocrit 33.8 VOL% (35.7-47.0); Hemoglobin 10.3 GM/DL (12.0-16.0); Immature Granulocytes % 0.3 %; Immature Granulocytes Absolute 0.03 #; Lymphocytes # 1.4 10*3/uL (1.4-4.0); Mean Corpuscular HGB Conc 30.5 GM/DL (32-36); Mean Corpuscular Volume 93.9 FL (87-102); Mean Platelet Volume 11.5 FL (9.6-12.0); Monocytes % 6.7 % (1.7-12.7); Neutrophils % 74.7 % (38.7-73.9); Platelet Count 225 T/CUMM (130-400); Red Cell Distribution Width 15.1 % (9.3-17.3); White Blood Count 8.8 T/CUMM (4-12)
[2020-06-16 04:51] LABS: INR 1.1; PT Patient Result 11.3 SECS (9.8-11.9)
[2020-06-16 05:28] LABS: Alanine Aminotransferase 28 U/L (13-56); Albumin 3.3 G/DL (3.4-5.0); Alkaline Phosphatase 201 U/L (45-117); Aspartate Amino Transferase 25 U/L (0-37); Bilirubin,Total < 0.39 MG/DL (0.2-1.0); Blood Urea Nitrogen 59 MG/DL (7-18); Calcium 7.9 MG/DL (8.5-10.1); Carbon Dioxide 22 MMOL/L (21-32); Estimated Glom Filtration Rate 7 ML/MIN; Glucose 77 MG/DL (74-106); Osmolality,Calculated 301.8 MOS/KG (273-304); Potassium 4.6 MMOL/L (3.5-5.1); Sodium 144 MMOL/L (136-145); Total Protein 6.6 G/DL (6.4-8.2)
[2020-06-16] MEDS ORDERED: hydrALAZINE 20 MG/1 ML VIAL IV PRN (08:04)
[2020-06-16] MEDS ORDERED: ONDANSETRON 4 MG/2 ML VIAL IV PRN ×2 (08:04→08:14)
[2020-06-16] MEDS ORDERED: DEXTROSE 50% 25 GM/50 ML VIAL IV PRN ×2 (08:04→08:14)
[2020-06-16] MEDS ORDERED: GLUCAGON 1 MG VIAL IM PRN ×2 (08:04→08:14)
[2020-06-16] MEDS ORDERED: ALBUTEROL 2.5 MG/3 ML NEB RESP TX PRN (08:11)
[2020-06-16] MEDS ORDERED: FUROSEMIDE 40 MG/4 ML VIAL IV STA (08:13)
[2020-06-16] MEDS ORDERED: cloNIDine 0.1 MG TABLET PO SCH (09:00)
[2020-06-16] MEDS ORDERED: PANTOPRAZOLE 40 MG TABLET PO SCH (09:00)
[2020-06-16] MEDS: amLODIPine 10 MG TABLET PO SCH (12:00)
[2020-06-16] MEDS: SODIUM BICARBONATE 650 MG TABLET PO SCH ×3 (12:00→21:20)
[2020-06-16] MEDS: PANTOPRAZOLE 40 MG TABLET PO SCH (12:00)
[2020-06-16] MEDS: ENOXAPARIN 30 MG/0.3 ML SYRINGE SUBCUT SCH (12:02)
[2020-06-16] MEDS: SEVELAMER CARBONATE 800 MG TABLET PO SCH ×2 (12:52→17:14)
[2020-06-16] MEDS: FUROSEMIDE 40 MG/4 ML VIAL IV SCH (15:36)
[2020-06-17 05:52] LABS: Basophils % 0.2 % (0.0-0.8); Eosinophils # 0.1 10*3/uL (0.0-0.87); Eosinophils % 0.8 % (0.00-10.9); Hematocrit 27.7 VOL% (35.7-47.0); Hemoglobin 8.6 GM/DL (12.0-16.0); Immature Granulocytes % 1.1 %; Immature Granulocytes Absolute 0.13 #; Lymphocytes # 1.6 10*3/uL (1.4-4.0); Lymphocytes % 13.1 % (21.3-54.2); Mean Corpuscular Volume 92.6 FL (87-102); Mean Platelet Volume 12.4 FL (9.6-12.0); Monocytes % 7.8 % (1.7-12.7); Platelet Count 186 T/CUMM (130-400); Red Blood Count 2.99 MC/CUMM (3.8-5.5); Red Cell Distribution Width 15.2 % (9.3-17.3); White Blood Count 11.8 T/CUMM (4-12)
[2020-06-17 06:27] LABS: Calcium 8.2 MG/DL (8.5-10.1); Osmolality,Calculated 298.3 MOS/KG (273-304); Potassium 4.6 MMOL/L (3.5-5.1)
[2020-06-17 06:38] LABS: Alanine Aminotransferase 18 U/L (13-56); Albumin 2.7 G/DL (3.4-5.0); Alkaline Phosphatase 149 U/L (45-117); Aspartate Amino Transferase 6 U/L (0-37); Bilirubin,Total < 0.39 MG/DL (0.2-1.0); Blood Urea Nitrogen 61 MG/DL (7-18); Calcium 8.3 MG/DL (8.5-10.1); Carbon Dioxide 20 MMOL/L (21-32); Estimated Glom Filtration Rate 6 ML/MIN; Glucose 90 MG/DL (74-106); Osmolality,Calculated 295.4 MOS/KG (273-304); Potassium 4.5 MMOL/L (3.5-5.1); Sodium 140 MMOL/L (136-145); Total Protein 5.4 G/DL (6.4-8.2)
[2020-06-17] MEDS: FUROSEMIDE 40 MG/4 ML VIAL IV SCH (08:46)
[2020-06-17] MEDS: SEVELAMER CARBONATE 800 MG TABLET PO SCH ×2 (08:47→12:01)
[2020-06-17] MEDS: SODIUM BICARBONATE 650 MG TABLET PO SCH (08:47)
[2020-06-17] MEDS: amLODIPine 10 MG TABLET PO SCH (08:47)
[2020-06-17] MEDS: PANTOPRAZOLE 40 MG TABLET PO SCH (08:48)
[2020-06-17] MEDS: ENOXAPARIN 30 MG/0.3 ML SYRINGE SUBCUT SCH (10:45)
[2020-06-17 11:25] VITALS: BP 123/63
== END 2020-06-17 12:08 | disposition home or self-care (01) | DRG 682 ==
LOC: N.ED 04:09 → N.EDINP 08:15 → N.TELEN 12:17
PROVIDERS: ADMIT Family Medicine; ATTEND Family Medicine

== ENCOUNTER 2020-11-29 12:55 | Inpatient (IN) ==
[2020-11-29] MEDS ORDERED: hydrALAZINE 20 MG/1 ML VIAL IV STA (13:16)
[2020-11-29] MEDS ORDERED: SODIUM CHLORIDE 0.9% 1,000 ML IV STA (13:16)
[2020-11-29 14:15] LABS: Basophils # 0.1 10*3/uL (0.0-0.2); Basophils % 0.4 % (0.0-0.8); Eosinophils # 0.1 10*3/uL (0.0-0.87); Eosinophils % 0.6 % (0.00-10.9); Hematocrit 28.6 VOL% (35.7-47.0); Hemoglobin 8.6 GM/DL (12.0-16.0); Immature Granulocytes % 0.5 %; Immature Granulocytes Absolute 0.06 #; Lymphocytes # 1.1 10*3/uL (1.4-4.0); Lymphocytes % 9.8 % (21.3-54.2); Mean Corpuscular HGB Conc 30.1 GM/DL (32-36); Mean Corpuscular Volume 93.5 FL (87-102); Monocytes % 6.9 % (1.7-12.7); Neutrophils % 81.8 % (38.7-73.9); Platelet Count 251 T/CUMM (130-400); Red Blood Count 3.06 MC/CUMM (3.8-5.5); Red Cell Distribution Width 16.1 % (9.3-17.3); White Blood Count 11.2 T/CUMM (4-12)
[2020-11-29] MEDS ORDERED: LABETALOL 100 MG/20 ML VIAL IV STA (14:34)
[2020-11-29 14:36] LABS: Calcium 7.2 MG/DL (8.5-10.1); Osmolality,Calculated 298.4 MOS/KG (273-304); Potassium 5.9 MMOL/L (3.5-5.1)
[2020-11-29] MEDS ORDERED: DEXTROSE 50% 25 GM/50 ML VIAL IV STA (15:53)
[2020-11-29] MEDS ORDERED: INSULIN REGULAR 100 UNIT/ML IV STA (15:53)
[2020-11-29] MEDS ORDERED: ONDANSETRON 4 MG/2 ML VIAL IV PRN (16:06)
[2020-11-29] MEDS ORDERED: ACETAMINOPHEN 325 MG TABLET PO PRN (16:06)
[2020-11-29] MEDS ORDERED: DEXTROSE 50% 25 GM/50 ML VIAL IV PRN (16:06)
[2020-11-29] MEDS ORDERED: GLUCAGON 1 MG VIAL IM PRN (16:06)
[2020-11-29] MEDS: HEPARIN 5,000 UNIT/1 ML VIAL SUBCUT SCH (17:52)
[2020-11-29] MEDS: FUROSEMIDE 40 MG/4 ML VIAL IV SCH (17:52)
[2020-11-29] MEDS: hydrALAZINE 20 MG/1 ML VIAL IV PRN (17:53)
[2020-11-29 19:40] LABS: Hepatitis B Core IgM Quant 1.03 Index; Hepatitis B Surface Ag Quant < 0.10 Index; Hepatitis B Surface Ag Result Non-Reactive (NonReactive); Hepatitis C Virus Ab Quant 0.04 Index; Hepatitis C Virus Ab Result Non-Reactive (NonReactive)
[2020-11-29] MEDS: SODIUM ZIRCONIUM CYCLOSILICATE 10 GM PACK PO SCH (20:51)
[2020-11-30 00:23] LABS: Barbiturates Screen,Urine Negative (Negative); Benzodiazepines Screen,Urine Negative (Negative); Cannabinoid Screen,Urine Negative (Negative); Opiate Screen,Urine Negative (Negative); Phencyclidine Screen,Urine Negative (Negative)
[2020-11-30] MEDS: HEPARIN 5,000 UNIT/1 ML VIAL SUBCUT SCH ×2 (04:24→16:45)
[2020-11-30 07:13] LABS: Basophils % 0.4 % (0.0-0.8); Eosinophils # 0.2 10*3/uL (0.0-0.87); Eosinophils % 1.9 % (0.00-10.9); Hematocrit 25.3 VOL% (35.7-47.0); Hemoglobin 7.6 GM/DL (12.0-16.0); Immature Granulocytes % 0.6 %; Immature Granulocytes Absolute 0.06 #; Lymphocytes # 0.8 10*3/uL (1.4-4.0); Mean Corpuscular Volume 93.7 FL (87-102); Mean Platelet Volume 10.9 FL (9.6-12.0); Monocytes % 8.4 % (1.7-12.7); Neutrophils % 80.7 % (38.7-73.9); Platelet Count 237 T/CUMM (130-400); Red Cell Distribution Width 16.5 % (9.3-17.3); White Blood Count 9.6 T/CUMM (4-12)
[2020-11-30 07:45] LABS: Albumin 2.5 G/DL (3.4-5.0); Bilirubin,Total 1.3 MG/DL (0.20-1.00); Calcium 7.2 MG/DL (8.5-10.1); Osmolality,Calculated 299.3 MOS/KG (273-304); Potassium 4.9 MMOL/L (3.5-5.1); Total Protein 5.6 G/DL (6.4-8.2)
[2020-11-30] MEDS ORDERED: CLINDAMYCIN INJ 900 MG/50 ML PREMIX IV ONE (09:00)
[2020-11-30] MEDS ORDERED: ALBUTEROL 2.5 MG/3 ML NEB RESP TX PRN (09:12)
[2020-11-30] MEDS ORDERED: NICOTINE 21 MG/24 HR PATCH TRANSDERM PRN (09:13)
[2020-11-30] MEDS: FUROSEMIDE 40 MG/4 ML VIAL IV SCH ×2 (12:50→16:46)
[2020-11-30] MEDS: SODIUM ZIRCONIUM CYCLOSILICATE 10 GM PACK PO SCH ×3 (12:52→21:40)
[2020-11-30] MEDS: hydrALAZINE 20 MG/1 ML VIAL IV PRN (16:57)
[2020-12-01] MEDS: hydrALAZINE 20 MG/1 ML VIAL IV PRN (00:37)
[2020-12-01] MEDS: HEPARIN 5,000 UNIT/1 ML VIAL SUBCUT SCH ×2 (04:26→16:11)
[2020-12-01] MEDS ORDERED: CLINDAMYCIN INJ 900 MG/50 ML PREMIX IV ONE (07:30)
[2020-12-01] MEDS ORDERED: fentaNYL 100 MCG/2 ML VIAL ONE (08:10)
[2020-12-01] MEDS ORDERED: LIDOCAINE 2% 5 ML VIAL ONE (08:10)
[2020-12-01] MEDS ORDERED: propofoL 200 MG/20 ML VIAL IV ONE (08:10)
[2020-12-01] MEDS ORDERED: MIDAZOLAM 2 MG/2 ML VIAL ONE ×2 (08:10→09:03)
[2020-12-01 08:22] LABS: Basophils % 0.5 % (0.0-0.8); Eosinophils # 0.2 10*3/uL (0.0-0.87); Eosinophils % 2.9 % (0.00-10.9); Hematocrit 27.3 VOL% (35.7-47.0); Hemoglobin 8.3 GM/DL (12.0-16.0); Immature Granulocytes % 0.5 %; Immature Granulocytes Absolute 0.04 #; Lymphocytes # 1.1 10*3/uL (1.4-4.0); Lymphocytes % 13.3 % (21.3-54.2); Mean Corpuscular HGB Conc 30.4 GM/DL (32-36); Mean Corpuscular Volume 93.5 FL (87-102); Mean Platelet Volume 10.7 FL (9.6-12.0); Monocytes % 8.7 % (1.7-12.7); Neutrophils % 74.1 % (38.7-73.9); Platelet Count 257 T/CUMM (130-400); Red Blood Count 2.92 MC/CUMM (3.8-5.5); Red Cell Distribution Width 16.2 % (9.3-17.3)
[2020-12-01] MEDS ORDERED: LIDOCAINE 1%/EPI INJ 20 ML VIAL ONE (08:22)
[2020-12-01] MEDS ORDERED: BUPIVACAINE MPF 0.25% 30 ML VIAL ONE (08:22)
[2020-12-01 08:55] LABS: Calcium 7.3 MG/DL (8.5-10.1); Potassium 4.1 MMOL/L (3.5-5.1)
[2020-12-01] MEDS ORDERED: SODIUM CHLORIDE 0.9% 250 ML IV SCH (09:00)
[2020-12-01] MEDS ORDERED: ONDANSETRON 4 MG/2 ML VIAL ONE (09:38)
[2020-12-01] MEDS ORDERED: SODIUM CHLORIDE 0.9% 100 ML IV ONE (09:38)
[2020-12-01] MEDS: SODIUM ZIRCONIUM CYCLOSILICATE 10 GM PACK PO SCH ×2 (10:49→14:18)
[2020-12-01] MEDS: FUROSEMIDE 40 MG/4 ML VIAL IV SCH ×2 (10:49→16:10)
[2020-12-01] MEDS ORDERED: HEPARIN 10,000 UNIT/10 ML VIAL IV SCH (13:45)
[2020-12-02] MEDS: HEPARIN 5,000 UNIT/1 ML VIAL SUBCUT SCH ×2 (05:27→17:01)
[2020-12-02 06:47] LABS: Basophils % 0.5 % (0.0-0.8); Eosinophils # 0.2 10*3/uL (0.0-0.87); Eosinophils % 2.2 % (0.00-10.9); Hematocrit 30.2 VOL% (35.7-47.0); Hemoglobin 9.1 GM/DL (12.0-16.0); Immature Granulocytes % 1.5 %; Immature Granulocytes Absolute 0.12 #; Lymphocytes # 0.8 10*3/uL (1.4-4.0); Lymphocytes % 10.2 % (21.3-54.2); Mean Corpuscular HGB Conc 30.1 GM/DL (32-36); Mean Corpuscular Volume 92.6 FL (87-102); Mean Platelet Volume 11.5 FL (9.6-12.0); Monocytes % 10.6 % (1.7-12.7); Platelet Count 296 T/CUMM (130-400); Red Blood Count 3.26 MC/CUMM (3.8-5.5)
[2020-12-02 07:02] LABS: Osmolality,Calculated 294.1 MOS/KG (273-304); Potassium 3.9 MMOL/L (3.5-5.1)
[2020-12-02] MEDS: FUROSEMIDE 40 MG/4 ML VIAL IV SCH ×2 (08:02→17:01)
[2020-12-02] MEDS: cloNIDine 0.1 MG TABLET PO SCH ×2 (08:32→21:20)
[2020-12-02] MEDS: amLODIPine 5 MG TABLET PO SCH (12:48)
[2020-12-03 05:45] LABS: Basophils # 0.1 10*3/uL (0.0-0.2); Basophils % 0.7 % (0.0-0.8); Eosinophils # 0.2 10*3/uL (0.0-0.87); Eosinophils % 2.1 % (0.00-10.9); Hematocrit 29.6 VOL% (35.7-47.0); Hemoglobin 9.1 GM/DL (12.0-16.0); Immature Granulocytes % 0.6 %; Immature Granulocytes Absolute 0.04 #; Lymphocytes # 0.9 10*3/uL (1.4-4.0); Mean Corpuscular HGB Conc 30.7 GM/DL (32-36); Mean Corpuscular Volume 91.9 FL (87-102); Mean Platelet Volume 11.3 FL (9.6-12.0); Neutrophils % 73.6 % (38.7-73.9); Platelet Count 247 T/CUMM (130-400); Red Blood Count 3.22 MC/CUMM (3.8-5.5); Red Cell Distribution Width 15.9 % (9.3-17.3)
[2020-12-03] MEDS: HEPARIN 5,000 UNIT/1 ML VIAL SUBCUT SCH ×2 (05:45→16:05)
[2020-12-03 06:40] LABS: Calcium 7.1 MG/DL (8.5-10.1); Osmolality,Calculated 284.7 MOS/KG (273-304); Potassium 3.7 MMOL/L (3.5-5.1)
[2020-12-03] MEDS: cloNIDine 0.1 MG TABLET PO SCH ×2 (09:04→21:11)
[2020-12-03] MEDS: amLODIPine 5 MG TABLET PO SCH (09:05)
[2020-12-03] MEDS: FUROSEMIDE 40 MG/4 ML VIAL IV SCH ×2 (09:05→16:05)
[2020-12-04 04:54] LABS: Basophils % 0.6 % (0.0-0.8); Eosinophils # 0.1 10*3/uL (0.0-0.87); Eosinophils % 1.8 % (0.00-10.9); Hematocrit 31.1 VOL% (35.7-47.0); Hemoglobin 9.5 GM/DL (12.0-16.0); Immature Granulocytes % 0.4 %; Immature Granulocytes Absolute 0.03 #; Lymphocytes # 1.4 10*3/uL (1.4-4.0); Lymphocytes % 19.5 % (21.3-54.2); Mean Corpuscular HGB Conc 30.5 GM/DL (32-36); Mean Corpuscular Volume 91.7 FL (87-102); Mean Platelet Volume 11.3 FL (9.6-12.0); Monocytes % 12.2 % (1.7-12.7); Neutrophils % 65.5 % (38.7-73.9); Platelet Count 235 T/CUMM (130-400); Red Blood Count 3.39 MC/CUMM (3.8-5.5); Red Cell Distribution Width 15.4 % (9.3-17.3); White Blood Count 7.2 T/CUMM (4-12)
[2020-12-04] MEDS: HEPARIN 5,000 UNIT/1 ML VIAL SUBCUT SCH (05:08)
[2020-12-04 05:18] LABS: Osmolality,Calculated 280.5 MOS/KG (273-304); Potassium 3.6 MMOL/L (3.5-5.1)
[2020-12-04] MEDS ORDERED: FUROSEMIDE 40 MG TABLET PO SCH (08:00)
[2020-12-04] MEDS: cloNIDine 0.1 MG TABLET PO SCH (08:40)
[2020-12-04] MEDS: amLODIPine 5 MG TABLET PO SCH (08:40)
[2020-12-04 11:41] VITALS: BP 143/82
== END 2020-12-04 13:15 | disposition home or self-care (01) | DRG 291 ==
LOC: N.ED 12:55 → N.EDINP 16:04 → N.5E 16:51
PROVIDERS: ADMIT Internal Medicine Geriatric Medicine; ATTEND Internal Medicine Geriatric Medicine

== ENCOUNTER 2021-01-03 03:03 | Inpatient (IN) ==
[2021-01-03] MEDS ORDERED: LABETALOL 20 MG/4 ML SYRINGE IV STA (04:00)
[2021-01-03 04:05] LABS: Basophils % 0.3 % (0.0-0.8); Eosinophils # 0.1 10*3/uL (0.0-0.87); Eosinophils % 0.4 % (0.00-10.9); Hematocrit 32.1 VOL% (35.7-47.0); Hemoglobin 9.6 GM/DL (12.0-16.0); Immature Granulocytes % 0.4 %; Immature Granulocytes Absolute 0.05 #; Lymphocytes # 0.5 10*3/uL (1.4-4.0); Lymphocytes % 3.8 % (21.3-54.2); Mean Corpuscular HGB Conc 29.9 GM/DL (32-36); Mean Corpuscular Volume 94.1 FL (87-102); Mean Platelet Volume 10.8 FL (9.6-12.0); Monocytes % 5.8 % (1.7-12.7); Neutrophils % 89.3 % (38.7-73.9); Platelet Count 218 T/CUMM (130-400); Red Blood Count 3.41 MC/CUMM (3.8-5.5); Red Cell Distribution Width 13.9 % (9.3-17.3); White Blood Count 13.6 T/CUMM (4-12)
[2021-01-03 04:22] LABS: Bacteria,Urine Occasional /HPF (Few); Bilirubin,Urine Negative (Negative); Blood, Urine Small mg/dL (Negative); Glucose,Urine (UA) 50 mg/dL (Negative); Ketones,Urine Negative (Negative); Mucus,Urine Occasional /LPF (Occasional); Nitrite,Urine Negative (Negative); Protein,Urine 100 MG/DL; RBC,Urine 12 /HPF (0-4); Squamous Epithelial Cell,Urine Occasional /HPF (0-10); Urine Appearance CLEAR (Clear); Urine Color Straw (Yellow); Urine Specific Gravity 1.008 (1.001-1.035); Urine Urobilinogen < 2.0 EU/DL (0.2-1.0)
[2021-01-03 04:24] LABS: Albumin 3.3 G/DL (3.4-5.0); Bilirubin,Total 0.5 MG/DL (0.20-1.00); Calcium 7.7 MG/DL (8.5-10.1); Lymphocytes 1 % (20-55); Osmolality,Calculated 296.4 MOS/KG (273-304); Platelet Estimate Adequate; Potassium 4.1 MMOL/L (3.5-5.1); Segmented Neutrophils 91 % (50-85); Total Cells Counted 100; Total Protein 6.8 G/DL (6.4-8.2)
[2021-01-03 04:26] LABS: Hypochromasia 1+; Microcytosis 1+; Ovalocytes Slight
[2021-01-03 04:26] LABS: INR 1.1; PT Patient Result 11.8 SECS (10.5-12.0)
[2021-01-03 04:33] LABS: Barbiturates Screen,Urine Negative (Negative); Benzodiazepines Screen,Urine Negative (Negative); Cannabinoid Screen,Urine Negative (Negative); Opiate Screen,Urine Negative (Negative); Phencyclidine Screen,Urine Negative (Negative)
[2021-01-03] MEDS ORDERED: FUROSEMIDE 40 MG/4 ML VIAL IV STA (04:48)
[2021-01-03] MEDS ORDERED: cefTRIAXone 1,000 MG in SODIUM CHLORIDE 0.9% 100 ML IV STA (04:55)
[2021-01-03] MEDS ORDERED: ONDANSETRON 4 MG/2 ML VIAL IV PRN (05:28)
[2021-01-03] MEDS ORDERED: DEXTROSE 50% 25 GM/50 ML VIAL IV PRN (05:28)
[2021-01-03] MEDS ORDERED: NICOTINE 21 MG/24 HR PATCH TRANSDERM PRN (05:28)
[2021-01-03] MEDS ORDERED: GLUCAGON 1 MG VIAL IM PRN (05:28)
[2021-01-03] MEDS ORDERED: hydrALAZINE 20 MG/1 ML VIAL IV STA (05:32)
[2021-01-03] MEDS: hydrALAZINE 20 MG/1 ML VIAL IV PRN ×2 (08:00→16:49)
[2021-01-03] MEDS: amLODIPine 10 MG TABLET PO SCH (08:00)
[2021-01-03] MEDS: PANTOPRAZOLE 40 MG TABLET PO SCH (08:00)
[2021-01-03] MEDS ORDERED: INFLUENZA VIRUS VACCINE 0.5 ML SYRINGE IM ONE (08:23)
[2021-01-03] MEDS: ACETAMINOPHEN 325 MG TABLET PO PRN (08:53)
[2021-01-03] MEDS: HEPARIN 5,000 UNIT/1 ML VIAL SUBCUT SCH ×2 (08:54→20:20)
[2021-01-03] MEDS ORDERED: LABETALOL 20 MG/4 ML SYRINGE IV ONE (08:57)
[2021-01-03] MEDS: cloNIDine 0.1 MG TABLET PO SCH ×2 (09:10→20:20)
[2021-01-03] MEDS ORDERED: HEPARIN 10,000 UNIT/10 ML VIAL IV PRN (15:36)
[2021-01-04] MEDS: cefTRIAXone 1,000 MG in SODIUM CHLORIDE 0.9% 100 ML IV SCH (04:46)
[2021-01-04 04:55] LABS: Basophils % 0.3 % (0.0-0.8); Eosinophils % 0.3 % (0.00-10.9); Hematocrit 32.5 VOL% (35.7-47.0); Hemoglobin 9.8 GM/DL (12.0-16.0); Immature Granulocytes % 0.6 %; Immature Granulocytes Absolute 0.05 #; Lymphocytes # 0.9 10*3/uL (1.4-4.0); Lymphocytes % 10.4 % (21.3-54.2); Mean Corpuscular HGB Conc 30.2 GM/DL (32-36); Mean Corpuscular Volume 92.9 FL (87-102); Mean Platelet Volume 11.7 FL (9.6-12.0); Monocytes % 8.1 % (1.7-12.7); Neutrophils % 80.3 % (38.7-73.9); Platelet Count 205 T/CUMM (130-400)
[2021-01-04 05:15] LABS: Albumin 2.6 G/DL (3.4-5.0); Bilirubin,Total 0.6 MG/DL (0.20-1.00); Osmolality,Calculated 281.7 MOS/KG (273-304); Potassium 4.2 MMOL/L (3.5-5.1); Total Protein 6.2 G/DL (6.4-8.2)
[2021-01-04] MEDS: FUROSEMIDE 40 MG TABLET PO SCH ×2 (07:54→16:27)
[2021-01-04] MEDS: cloNIDine 0.1 MG TABLET PO SCH ×2 (08:00→20:03)
[2021-01-04] MEDS: HEPARIN 5,000 UNIT/1 ML VIAL SUBCUT SCH ×2 (08:00→20:03)
[2021-01-04] MEDS: PANTOPRAZOLE 40 MG TABLET PO SCH (08:00)
[2021-01-04] MEDS: amLODIPine 10 MG TABLET PO SCH (08:00)
[2021-01-04] MEDS: ACETAMINOPHEN 325 MG TABLET PO PRN (12:29)
[2021-01-05] MEDS: cefTRIAXone 1,000 MG in SODIUM CHLORIDE 0.9% 100 ML IV SCH (04:11)
[2021-01-05 05:36] LABS: Basophils % 0.4 % (0.0-0.8); Eosinophils # 0.2 10*3/uL (0.0-0.87); Eosinophils % 2.2 % (0.00-10.9); Hematocrit 32.9 VOL% (35.7-47.0); Immature Granulocytes % 0.6 %; Immature Granulocytes Absolute 0.04 #; Lymphocytes # 0.8 10*3/uL (1.4-4.0); Lymphocytes % 12.3 % (21.3-54.2); Mean Corpuscular HGB Conc 30.4 GM/DL (32-36); Mean Corpuscular Volume 93.5 FL (87-102); Mean Platelet Volume 11.4 FL (9.6-12.0); Monocytes % 9.5 % (1.7-12.7); Platelet Count 202 T/CUMM (130-400); Red Blood Count 3.52 MC/CUMM (3.8-5.5); White Blood Count 6.9 T/CUMM (4-12)
[2021-01-05 06:01] LABS: Calcium 7.6 MG/DL (8.5-10.1); Osmolality,Calculated 287.8 MOS/KG (273-304); Potassium 4.5 MMOL/L (3.5-5.1)
[2021-01-05] MEDS: cloNIDine 0.1 MG TABLET PO SCH ×2 (12:29→20:34)
[2021-01-05] MEDS: FUROSEMIDE 40 MG TABLET PO SCH ×2 (12:30→17:37)
[2021-01-05] MEDS: amLODIPine 10 MG TABLET PO SCH (12:30)
[2021-01-05] MEDS: PANTOPRAZOLE 40 MG TABLET PO SCH (12:30)
[2021-01-05] MEDS: HEPARIN 5,000 UNIT/1 ML VIAL SUBCUT SCH ×2 (12:30→20:36)
[2021-01-05] MEDS: LOSARTAN 25 MG TABLET PO SCH (16:39)
[2021-01-06 05:40] LABS: Basophils % 0.6 % (0.0-0.8); Eosinophils # 0.2 10*3/uL (0.0-0.87); Eosinophils % 2.7 % (0.00-10.9); Hematocrit 34.5 VOL% (35.7-47.0); Hemoglobin 10.5 GM/DL (12.0-16.0); Immature Granulocytes % 0.3 %; Immature Granulocytes Absolute 0.02 #; Lymphocytes # 1.1 10*3/uL (1.4-4.0); Lymphocytes % 18.3 % (21.3-54.2); Mean Corpuscular HGB Conc 30.4 GM/DL (32-36); Mean Corpuscular Volume 92.7 FL (87-102); Mean Platelet Volume 11.1 FL (9.6-12.0); Monocytes % 10.5 % (1.7-12.7); Neutrophils % 67.6 % (38.7-73.9); Platelet Count 215 T/CUMM (130-400); Red Blood Count 3.72 MC/CUMM (3.8-5.5); Red Cell Distribution Width 13.6 % (9.3-17.3); White Blood Count 6.2 T/CUMM (4-12)
[2021-01-06 06:02] LABS: Calcium 8.3 MG/DL (8.5-10.1); Osmolality,Calculated 280.8 MOS/KG (273-304); Potassium 4.4 MMOL/L (3.5-5.1)
[2021-01-06] MEDS: cefTRIAXone 1,000 MG in SODIUM CHLORIDE 0.9% 100 ML IV SCH (06:27)
[2021-01-06] MEDS: cloNIDine 0.1 MG TABLET PO SCH (09:10)
[2021-01-06] MEDS: PANTOPRAZOLE 40 MG TABLET PO SCH (09:10)
[2021-01-06] MEDS: FUROSEMIDE 40 MG TABLET PO SCH (09:11)
[2021-01-06] MEDS: LOSARTAN 25 MG TABLET PO SCH (09:11)
[2021-01-06] MEDS: amLODIPine 10 MG TABLET PO SCH (09:11)
[2021-01-06] MEDS: HEPARIN 5,000 UNIT/1 ML VIAL SUBCUT SCH (09:13)
[2021-01-06 12:40] VITALS: BP 146/76
[2021-01-06] MEDS: ACETAMINOPHEN 325 MG TABLET PO PRN (13:32)
== END 2021-01-06 14:57 | disposition home or self-care (01) | DRG 640 ==
LOC: SUATTDRO → EDUNIT# → EDBD → N.ED 03:03 → N.EDINP 05:28 → SUATTDRO 05:28 → N.EDINP 07:52 → N.CC 08:18 → N.TELEN 01-05 18:23
PROVIDERS: ADMIT Internal Medicine; ATTEND Family Medicine

== ENCOUNTER 2021-02-07 10:29 | Inpatient (IN) ==
[~2021-02-07 10:29] MED LIST: ROCURONIUM 100 MG/10 ML VIAL IV ONE
[2021-02-07] MEDS ORDERED: niCARdipine INJ 25 MG in SODIUM CHLORIDE 0.9% 240 ML IV PRN (10:31)
[2021-02-07] MEDS ORDERED: FUROSEMIDE 100 MG/10 ML VIAL IV STA (10:33)
[2021-02-07] MEDS ORDERED: MORPHINE 10 MG/1 ML VIAL IV STA (10:34)
[2021-02-07] MEDS ORDERED: ONDANSETRON 4 MG/2 ML VIAL IV STA (10:34)
[2021-02-07] MEDS ORDERED: ETOMIDATE 20 MG/10 ML VIAL IV ONE (10:35)
[2021-02-07] MEDS ORDERED: MORPHINE 2 MG/1 ML SYRINGE ONE (10:36)
[2021-02-07 10:48] LABS: Basophils # 0.1 10*3/uL (0.0-0.2); Basophils % 0.7 % (0.0-0.8); Eosinophils # 0.3 10*3/uL (0.0-0.87); Eosinophils % 2.3 % (0.00-10.9); Hematocrit 35.9 VOL% (35.7-47.0); Hemoglobin 10.7 GM/DL (12.0-16.0); Immature Granulocytes % 0.6 %; Immature Granulocytes Absolute 0.06 #; Lymphocytes # 2.5 10*3/uL (1.4-4.0); Lymphocytes % 23.5 % (21.3-54.2); Mean Corpuscular HGB Conc 29.8 GM/DL (32-36); Mean Corpuscular Volume 90.9 FL (87-102); Mean Platelet Volume 10.9 FL (9.6-12.0); Monocytes % 7.8 % (1.7-12.7); Neutrophils % 65.1 % (38.7-73.9); Platelet Count 363 T/CUMM (130-400); Red Blood Count 3.95 MC/CUMM (3.8-5.5); Red Cell Distribution Width 15.6 % (9.3-17.3); White Blood Count 10.7 T/CUMM (4-12)
[2021-02-07 10:55] LABS: ABG Base Excess 19.9 MMOL/L (-2.5-2.5); ABG HCO3 44.4 MMOL/L (20-26); ABG PH 7.355 (7.35-7.45); ABG TCO2 45.6 MMOL/L (23-27)
[2021-02-07 10:59] LABS: ABG PCO2 89.8 MM HG (35-48)
[2021-02-07 11:15] LABS: Albumin 3.1 G/DL (3.4-5.0); Bilirubin,Total 0.6 MG/DL (0.20-1.00); Calcium 7.7 MG/DL (8.5-10.1); Osmolality,Calculated 291.5 MOS/KG (273-304); Potassium 3.3 MMOL/L (3.5-5.1)
[2021-02-07] MEDS ORDERED: ROCURONIUM 100 MG/10 ML VIAL IV ONE (11:18)
[2021-02-07 11:22] LABS: Bacteria,Urine Occasional /HPF (Few); Bilirubin,Urine Negative (Negative); Blood, Urine Negative (Negative); Glucose,Urine (UA) 50 mg/dL (Negative); Ketones,Urine Negative (Negative); Nitrite,Urine Negative (Negative); Protein,Urine 100 MG/DL; RBC,Urine 2 /HPF (0-4); Urine Appearance CLEAR (Clear); Urine Color Straw (Yellow); Urine Specific Gravity 1.005 (1.001-1.035); Urine Urobilinogen < 2.0 EU/DL (0.2-1.0)
[2021-02-07 11:29] LABS: INR 1.1; PT Patient Result 12.8 SECS (10.5-12.0); Partial Thromboplastin Time 79.9 SECS (23.8-32.1)
[2021-02-07] MEDS ORDERED: MIDAZOLAM 100 MG in SODIUM CHLORIDE 0.9% 80 ML IV PRN (11:52)
[2021-02-07 13:50] VITALS: BP 146/54
[2021-02-07] MEDS: METOPROLOL TARTRATE 5 MG/5 ML VIAL IV PRN (16:59)
[2021-02-07] MEDS ORDERED: cloNIDine 0.3 MG/24 HR PATCH TRANSDERM SCH (18:00)
[2021-02-08 04:23] LABS: ABG Base Excess 5.3 MMOL/L (-2.5-2.5); ABG HCO3 29.3 MMOL/L (20-26); ABG PCO2 30.5 MM HG (35-48); ABG PH 7.561 (7.35-7.45); ABG TCO2 24.9 MMOL/L (23-27)
[2021-02-08 05:24] LABS: Basophils % 0.6 % (0.0-0.8); Eosinophils # 0.2 10*3/uL (0.0-0.87); Eosinophils % 2.3 % (0.00-10.9); Hematocrit 31.3 VOL% (35.7-47.0); Hemoglobin 9.6 GM/DL (12.0-16.0); Immature Granulocytes % 0.3 %; Immature Granulocytes Absolute 0.02 #; Lymphocytes # 1.3 10*3/uL (1.4-4.0); Lymphocytes % 19.4 % (21.3-54.2); Mean Corpuscular HGB Conc 30.7 GM/DL (32-36); Mean Corpuscular Volume 88.9 FL (87-102); Mean Platelet Volume 10.3 FL (9.6-12.0); Monocytes % 9.8 % (1.7-12.7); Neutrophils % 67.6 % (38.7-73.9); Platelet Count 212 T/CUMM (130-400); Red Blood Count 3.52 MC/CUMM (3.8-5.5); Red Cell Distribution Width 15.5 % (9.3-17.3); White Blood Count 6.6 T/CUMM (4-12)
[2021-02-08 05:44] LABS: Calcium 8.4 MG/DL (8.5-10.1); Osmolality,Calculated 274.7 MOS/KG (273-304); Potassium 3.9 MMOL/L (3.5-5.1)
[2021-02-08] MEDS: METOPROLOL TARTRATE 5 MG/5 ML VIAL IV PRN (14:11)
[2021-02-08] MEDS ORDERED: cloNIDine 0.1 MG TABLET PO ONE (16:08)
[2021-02-08] MEDS ORDERED: hydrALAZINE 25 MG TABLET PO ONE (16:09)
[2021-02-08] MEDS: FUROSEMIDE 40 MG TABLET PO SCH (16:25)
[2021-02-08] MEDS: cloNIDine 0.1 MG TABLET PO SCH (21:23)
[2021-02-08] MEDS: hydrALAZINE 25 MG TABLET PO SCH (21:23)
[2021-02-08] MEDS: ENOXAPARIN 30 MG/0.3 ML SYRINGE SUBCUT SCH (21:24)
[2021-02-09 03:58] LABS: ABG Base Excess 1.4 MMOL/L (-2.5-2.5); ABG HCO3 25.6 MMOL/L (20-26); ABG Oxygen Saturation 95.5 % (95-100); ABG PCO2 44.9 MM HG (35-48); ABG PH 7.383 (7.35-7.45); ABG PO2 82.5 MM HG (80-95); ABG TCO2 24.4 MMOL/L (23-27)
[2021-02-09 06:07] LABS: Basophils # 0.1 10*3/uL (0.0-0.2); Basophils % 0.6 % (0.0-0.8); Eosinophils # 0.2 10*3/uL (0.0-0.87); Eosinophils % 2.7 % (0.00-10.9); Hematocrit 32.2 VOL% (35.7-47.0); Hemoglobin 9.5 GM/DL (12.0-16.0); Immature Granulocytes % 0.4 %; Immature Granulocytes Absolute 0.03 #; Lymphocytes % 12.2 % (21.3-54.2); Mean Corpuscular HGB Conc 29.5 GM/DL (32-36); Mean Corpuscular Volume 89.9 FL (87-102); Mean Platelet Volume 11.6 FL (9.6-12.0); Monocytes % 10.8 % (1.7-12.7); Neutrophils % 73.3 % (38.7-73.9); Platelet Count 247 T/CUMM (130-400); Red Blood Count 3.58 MC/CUMM (3.8-5.5); Red Cell Distribution Width 15.2 % (9.3-17.3)
[2021-02-09 06:27] LABS: Calcium 7.3 MG/DL (8.5-10.1); Osmolality,Calculated 284.7 MOS/KG (273-304); Potassium 4.6 MMOL/L (3.5-5.1)
[2021-02-09] MEDS: hydrALAZINE 25 MG TABLET PO SCH ×2 (08:36→21:13)
[2021-02-09] MEDS: PANTOPRAZOLE 40 MG VIAL IV SCH (08:36)
[2021-02-09] MEDS: cloNIDine 0.1 MG TABLET PO SCH ×2 (08:36→21:12)
[2021-02-09] MEDS: FUROSEMIDE 40 MG TABLET PO SCH ×2 (08:36→17:13)
[2021-02-09] MEDS ORDERED: HEPARIN 10,000 UNIT/10 ML VIAL IV ONE (16:00)
[2021-02-09] MEDS: ENOXAPARIN 30 MG/0.3 ML SYRINGE SUBCUT SCH (21:13)
[2021-02-10 06:45] LABS: Osmolality,Calculated 285.3 MOS/KG (273-304); Potassium 4.7 MMOL/L (3.5-5.1)
[2021-02-10] MEDS: PANTOPRAZOLE 40 MG VIAL IV SCH (08:29)
[2021-02-10] MEDS: hydrALAZINE 25 MG TABLET PO SCH (08:29)
[2021-02-10] MEDS: FUROSEMIDE 40 MG TABLET PO SCH (08:29)
[2021-02-10] MEDS: cloNIDine 0.1 MG TABLET PO SCH (08:29)
== END 2021-02-10 11:44 | disposition home health service (06) | DRG 208 ==
LOC: EDUNIT# → EDBD → N.ED 10:29 → SUATTDRO 11:33 → N.EDINP 11:33 → N.ICU 14:42
PROVIDERS: ADMIT Internal Medicine; ATTEND Internal Medicine

== ENCOUNTER 2021-05-22 09:57 | Inpatient (IN) ==
[2021-05-22] MEDS ORDERED: ALBUTEROL 2.5 MG/3 ML NEB RESP TX STA (10:24)
[2021-05-22] MEDS ORDERED: NITROGLYCERIN SL 0.4 MG TABLET SL PRN (10:27)
[2021-05-22 10:40] LABS: Basophils # 0.1 10*3/uL (0.0-0.2); Basophils % 0.7 % (0.0-0.8); Eosinophils # 0.1 10*3/uL (0.0-0.87); Eosinophils % 0.7 % (0.00-10.9); Hematocrit 33.5 VOL% (35.7-47.0); Hemoglobin 10.2 GM/DL (12.0-16.0); Immature Granulocytes % 0.5 %; Immature Granulocytes Absolute 0.05 #; Lymphocytes # 0.9 10*3/uL (1.4-4.0); Lymphocytes % 8.9 % (21.3-54.2); Mean Corpuscular HGB Conc 30.4 GM/DL (32-36); Mean Corpuscular Volume 93.6 FL (87-102); Mean Platelet Volume 10.1 FL (9.6-12.0); Monocytes % 7.2 % (1.7-12.7); Platelet Count 423 T/CUMM (130-400); Red Blood Count 3.58 MC/CUMM (3.8-5.5); White Blood Count 9.9 T/CUMM (4-12)
[2021-05-22] MEDS ORDERED: hydrALAZINE 20 MG/1 ML VIAL IV STA (10:52)
[2021-05-22 10:54] LABS: Arterial Base Excess iSTAT 0 MMOL/L (-2.5-2.5); Arterial Bicarbonate iSTAT 25.5 MMOL/L (20-26); Arterial O2 Saturation iSTAT 97 % (95-100); Arterial PCO2 iSTAT 45 MM HG (35-48); Arterial PO2 iSTAT 95 MM HG (80-95); Arterial Total CO2 iSTAT 27 MMO/L (23-27)
[2021-05-22] MEDS ORDERED: AZITHROMYCIN INJ 500 MG in SODIUM CHLORIDE 0.9% 250 ML IV STA (11:01)
[2021-05-22] MEDS ORDERED: cefTRIAXone 1,000 MG in SODIUM CHLORIDE 0.9% 100 ML IV STA (11:01)
[2021-05-22 11:05] LABS: Albumin 2.2 G/DL (3.4-5.0); Bilirubin,Total 0.4 MG/DL (0.20-1.00); Calcium 7.8 MG/DL (8.5-10.1); Osmolality,Calculated 303.8 MOS/KG (273-304); Potassium 5.1 MMOL/L (3.5-5.1); Total Protein 6.6 G/DL (6.4-8.2)
[2021-05-22] MEDS ORDERED: FUROSEMIDE 40 MG/4 ML VIAL IV STA (11:21)
[2021-05-22] MEDS ORDERED: GLUCAGON 1 MG VIAL IM PRN (12:06)
[2021-05-22] MEDS ORDERED: ONDANSETRON 4 MG/2 ML VIAL IV PRN (12:06)
[2021-05-22] MEDS ORDERED: DEXTROSE 10% 250 ML BAG IV PRN (12:22)
[2021-05-22] MEDS: HEPARIN 5,000 UNIT/1 ML VIAL SUBCUT SCH ×2 (13:13→20:55)
[2021-05-22 14:00] LABS: Barbiturates Screen,Urine Negative (Negative); Benzodiazepines Screen,Urine Negative (Negative); Cannabinoid Screen,Urine Negative (Negative); Opiate Screen,Urine Negative (Negative); Phencyclidine Screen,Urine Negative (Negative)
[2021-05-22] MEDS: ALBUTEROL/IPRATROPIUM 3 ML NEB RESP TX SCH ×2 (15:08→19:40)
[2021-05-23] MEDS: LORazepam 1 MG TABLET PO SCH ×6 (00:52→21:25)
[2021-05-23] MEDS: cloNIDine 0.1 MG TABLET PO SCH ×3 (00:52→21:24)
[2021-05-23] MEDS: ALBUTEROL/IPRATROPIUM 3 ML NEB RESP TX SCH ×4 (01:15→19:40)
[2021-05-23 07:17] LABS: Basophils # 0.1 10*3/uL (0.0-0.2); Basophils % 0.7 % (0.0-0.8); Eosinophils # 0.1 10*3/uL (0.0-0.87); Eosinophils % 1.4 % (0.00-10.9); Hematocrit 36.6 VOL% (35.7-47.0); Hemoglobin 10.9 GM/DL (12.0-16.0); Immature Granulocytes % 0.7 %; Immature Granulocytes Absolute 0.06 #; Lymphocytes # 1.1 10*3/uL (1.4-4.0); Lymphocytes % 12.6 % (21.3-54.2); Mean Corpuscular HGB Conc 29.8 GM/DL (32-36); Mean Corpuscular Volume 92.7 FL (87-102); Mean Platelet Volume 10.9 FL (9.6-12.0); Monocytes % 7.3 % (1.7-12.7); Neutrophils % 77.3 % (38.7-73.9); Platelet Count 363 T/CUMM (130-400); Red Blood Count 3.95 MC/CUMM (3.8-5.5); Red Cell Distribution Width 16.5 % (9.3-17.3); White Blood Count 8.8 T/CUMM (4-12)
[2021-05-23 07:32] LABS: Calcium 7.4 MG/DL (8.5-10.1)
[2021-05-23] MEDS: hydrALAZINE 25 MG TABLET PO SCH ×2 (08:37→21:25)
[2021-05-23] MEDS: HEPARIN 5,000 UNIT/1 ML VIAL SUBCUT SCH ×2 (08:37→21:24)
[2021-05-23] MEDS: PANTOPRAZOLE 40 MG TABLET PO SCH (08:37)
[2021-05-23] MEDS: cefTRIAXone 1,000 MG in SODIUM CHLORIDE 0.9% 100 ML IV SCH (12:24)
[2021-05-23 14:15] LABS: Risk Ratio 3.58; VLDL Cholesterol 15.8 MG/DL
[2021-05-23] MEDS ORDERED: HEPARIN 10,000 UNIT/10 ML VIAL IV SCH (17:00)
[2021-05-23] MEDS: ASPIRIN 325 MG TABLET PO SCH (17:17)
[2021-05-23] MEDS: AZITHROMYCIN INJ 500 MG in SODIUM CHLORIDE 0.9% 250 ML IV SCH (17:20)
[2021-05-23] MEDS: ATORVASTATIN 80 MG TABLET PO SCH (21:25)
[2021-05-24] MEDS: ALBUTEROL/IPRATROPIUM 3 ML NEB RESP TX SCH ×4 (00:45→18:40)
[2021-05-24] MEDS: LORazepam 1 MG TABLET PO SCH ×4 (01:20→18:05)
[2021-05-24 05:47] LABS: Basophils # 0.1 10*3/uL (0.0-0.2); Eosinophils # 0.1 10*3/uL (0.0-0.87); Eosinophils % 2.2 % (0.00-10.9); Hemoglobin 10.1 GM/DL (12.0-16.0); Immature Granulocytes % 0.8 %; Immature Granulocytes Absolute 0.05 #; Lymphocytes # 1.1 10*3/uL (1.4-4.0); Lymphocytes % 17.6 % (21.3-54.2); Mean Corpuscular HGB Conc 29.7 GM/DL (32-36); Mean Corpuscular Volume 94.7 FL (87-102); Mean Platelet Volume 10.3 FL (9.6-12.0); Monocytes % 8.7 % (1.7-12.7); Neutrophils % 69.7 % (38.7-73.9); Platelet Count 347 T/CUMM (130-400); Red Blood Count 3.59 MC/CUMM (3.8-5.5); Red Cell Distribution Width 16.2 % (9.3-17.3)
[2021-05-24 06:04] LABS: Calcium 7.9 MG/DL (8.5-10.1); Osmolality,Calculated 287.5 MOS/KG (273-304); Potassium 4.9 MMOL/L (3.5-5.1)
[2021-05-24] MEDS: HEPARIN 5,000 UNIT/1 ML VIAL SUBCUT SCH ×2 (09:25→20:50)
[2021-05-24] MEDS: hydrALAZINE 25 MG TABLET PO SCH ×2 (09:25→20:50)
[2021-05-24] MEDS: PANTOPRAZOLE 40 MG TABLET PO SCH (09:25)
[2021-05-24] MEDS: cloNIDine 0.1 MG TABLET PO SCH ×2 (09:25→20:50)
[2021-05-24] MEDS: ASPIRIN 325 MG TABLET PO SCH (09:25)
[2021-05-24] MEDS: cefTRIAXone 1,000 MG in SODIUM CHLORIDE 0.9% 100 ML IV SCH (12:20)
[2021-05-24] MEDS: AZITHROMYCIN INJ 500 MG in SODIUM CHLORIDE 0.9% 250 ML IV SCH (14:04)
[2021-05-24] MEDS: ATORVASTATIN 80 MG TABLET PO SCH (20:50)
[2021-05-25] MEDS: hydrALAZINE 20 MG/1 ML VIAL IV PRN ×3 (00:01→17:29)
[2021-05-25] MEDS: LORazepam 1 MG TABLET PO SCH ×3 (00:01→17:30)
[2021-05-25] MEDS: ALBUTEROL/IPRATROPIUM 3 ML NEB RESP TX SCH ×4 (00:40→23:21)
[2021-05-25] MEDS ORDERED: hydrALAZINE 20 MG/1 ML VIAL IV ONE (03:56)
[2021-05-25] MEDS: HEPARIN 5,000 UNIT/1 ML VIAL SUBCUT SCH ×2 (08:42→20:52)
[2021-05-25] MEDS: PANTOPRAZOLE 40 MG TABLET PO SCH (08:43)
[2021-05-25] MEDS: cloNIDine 0.1 MG TABLET PO SCH ×2 (08:43→20:49)
[2021-05-25] MEDS: ASPIRIN 325 MG TABLET PO SCH (08:43)
[2021-05-25 13:56] LABS: Basophils # 0.1 10*3/uL (0.0-0.2); Eosinophils # 0.1 10*3/uL (0.0-0.87); Eosinophils % 1.4 % (0.00-10.9); Hematocrit 34.8 VOL% (35.7-47.0); Hemoglobin 10.5 GM/DL (12.0-16.0); Immature Granulocytes % 0.7 %; Immature Granulocytes Absolute 0.04 #; Lymphocytes # 0.7 10*3/uL (1.4-4.0); Lymphocytes % 11.7 % (21.3-54.2); Mean Corpuscular HGB Conc 30.2 GM/DL (32-36); Mean Corpuscular Volume 94.1 FL (87-102); Mean Platelet Volume 9.5 FL (9.6-12.0); Monocytes % 5.9 % (1.7-12.7); Neutrophils % 79.3 % (38.7-73.9); Platelet Count 363 T/CUMM (130-400); Red Cell Distribution Width 16.3 % (9.3-17.3); White Blood Count 5.8 T/CUMM (4-12)
[2021-05-25 14:16] LABS: Alanine Aminotransferase 20 U/L (13-56); Albumin 2.3 G/DL (3.4-5.0); Alkaline Phosphatase 167 U/L (45-117); Aspartate Amino Transferase 14 U/L (0-37); Bilirubin,Total < 0.39 MG/DL (0.20-1.00); Blood Urea Nitrogen 45 MG/DL (7-18); Calcium 7.8 MG/DL (8.5-10.1); Carbon Dioxide 27 MMOL/L (21-32); Estimated Glom Filtration Rate 7 ML/MIN; Glucose 115 MG/DL (74-106); Osmolality,Calculated 287.7 MOS/KG (273-304); Potassium 4.8 MMOL/L (3.5-5.1); Sodium 138 MMOL/L (136-145); Total Protein 6.6 G/DL (6.4-8.2)
[2021-05-25] MEDS: cefTRIAXone 1,000 MG in SODIUM CHLORIDE 0.9% 100 ML IV SCH (17:29)
[2021-05-25] MEDS: AZITHROMYCIN INJ 500 MG in SODIUM CHLORIDE 0.9% 250 ML IV SCH (18:35)
[2021-05-25] MEDS: DONEPEZIL 5 MG TABLET PO SCH (20:49)
[2021-05-25] MEDS: ATORVASTATIN 80 MG TABLET PO SCH (20:49)
[2021-05-26] MEDS: ALBUTEROL/IPRATROPIUM 3 ML NEB RESP TX SCH ×4 (00:30→19:21)
[2021-05-26 07:09] LABS: Basophils # 0.1 10*3/uL (0.0-0.2); Basophils % 1.1 % (0.0-0.8); Eosinophils # 0.2 10*3/uL (0.0-0.87); Eosinophils % 2.3 % (0.00-10.9); Hematocrit 37.1 VOL% (35.7-47.0); Hemoglobin 11.3 GM/DL (12.0-16.0); Immature Granulocytes % 0.5 %; Immature Granulocytes Absolute 0.04 #; Lymphocytes # 0.6 10*3/uL (1.4-4.0); Lymphocytes % 8.5 % (21.3-54.2); Mean Corpuscular HGB Conc 30.5 GM/DL (32-36); Mean Corpuscular Volume 92.1 FL (87-102); Mean Platelet Volume 9.6 FL (9.6-12.0); Monocytes % 7.4 % (1.7-12.7); Neutrophils % 80.2 % (38.7-73.9); Platelet Count 360 T/CUMM (130-400); Red Blood Count 4.03 MC/CUMM (3.8-5.5); Red Cell Distribution Width 15.9 % (9.3-17.3); White Blood Count 7.4 T/CUMM (4-12)
[2021-05-26 07:28] LABS: Alanine Aminotransferase 14 U/L (13-56); Albumin 2.1 G/DL (3.4-5.0); Alkaline Phosphatase 172 U/L (45-117); Aspartate Amino Transferase 16 U/L (0-37); Bilirubin,Total < 0.39 MG/DL (0.20-1.00); Blood Urea Nitrogen 34 MG/DL (7-18); Calcium 8.4 MG/DL (8.5-10.1); Carbon Dioxide 27 MMOL/L (21-32); Estimated Glom Filtration Rate 8 ML/MIN; Glucose 99 MG/DL (74-106); Osmolality,Calculated 282.7 MOS/KG (273-304); Potassium 4.9 MMOL/L (3.5-5.1); Sodium 138 MMOL/L (136-145); Total Protein 6.3 G/DL (6.4-8.2)
[2021-05-26] MEDS ORDERED: LORazepam 1 MG TABLET PO PRN (07:28)
[2021-05-26] MEDS: HEPARIN 5,000 UNIT/1 ML VIAL SUBCUT SCH ×2 (08:21→20:45)
[2021-05-26] MEDS: ASPIRIN 325 MG TABLET PO SCH (08:21)
[2021-05-26] MEDS: cloNIDine 0.1 MG TABLET PO SCH ×2 (08:21→20:45)
[2021-05-26] MEDS: PANTOPRAZOLE 40 MG TABLET PO SCH (08:21)
[2021-05-26] MEDS: hydrALAZINE 20 MG/1 ML VIAL IV PRN (12:08)
[2021-05-26] MEDS: CEFEPIME 1,000 MG in SODIUM CHLORIDE 0.9% 100 ML IV SCH (13:18)
[2021-05-26] MEDS: ATORVASTATIN 80 MG TABLET PO SCH (20:45)
[2021-05-26] MEDS: DONEPEZIL 5 MG TABLET PO SCH (20:45)
[2021-05-27] MEDS: ALBUTEROL/IPRATROPIUM 3 ML NEB RESP TX SCH ×4 (01:11→19:11)
[2021-05-27 06:26] LABS: Basophils # 0.1 10*3/uL (0.0-0.2); Basophils % 0.7 % (0.0-0.8); Eosinophils # 0.1 10*3/uL (0.0-0.87); Eosinophils % 1.9 % (0.00-10.9); Hematocrit 35.7 VOL% (35.7-47.0); Hemoglobin 10.7 GM/DL (12.0-16.0); Immature Granulocytes % 0.6 %; Immature Granulocytes Absolute 0.04 #; Lymphocytes # 0.8 10*3/uL (1.4-4.0); Lymphocytes % 12.3 % (21.3-54.2); Mean Corpuscular Volume 93.7 FL (87-102); Mean Platelet Volume 10.3 FL (9.6-12.0); Monocytes % 8.2 % (1.7-12.7); Neutrophils % 76.3 % (38.7-73.9); Platelet Count 357 T/CUMM (130-400); Red Blood Count 3.81 MC/CUMM (3.8-5.5); Red Cell Distribution Width 15.9 % (9.3-17.3); White Blood Count 6.9 T/CUMM (4-12)
[2021-05-27 06:44] LABS: Albumin 2.2 G/DL (3.4-5.0); Bilirubin,Total 0.4 MG/DL (0.20-1.00); Osmolality,Calculated 287.5 MOS/KG (273-304); Potassium 5.4 MMOL/L (3.5-5.1); Total Protein 6.6 G/DL (6.4-8.2)
[2021-05-27] MEDS: ASPIRIN 325 MG TABLET PO SCH (08:30)
[2021-05-27] MEDS: CEFEPIME 1,000 MG in SODIUM CHLORIDE 0.9% 100 ML IV SCH (08:30)
[2021-05-27] MEDS: cloNIDine 0.1 MG TABLET PO SCH ×2 (08:30→22:19)
[2021-05-27] MEDS: HEPARIN 5,000 UNIT/1 ML VIAL SUBCUT SCH ×2 (08:30→22:19)
[2021-05-27] MEDS: PANTOPRAZOLE 40 MG TABLET PO SCH (08:30)
[2021-05-27] MEDS: hydrALAZINE 20 MG/1 ML VIAL IV PRN (10:32)
[2021-05-27] MEDS ORDERED: cloNIDine 0.1 MG TABLET PO ONE (11:00)
[2021-05-27] MEDS ORDERED: ZOLPIDEM 5 MG TABLET PO PRN (15:20)
[2021-05-27] MEDS: ACETAMINOPHEN 325 MG TABLET PO PRN (22:19)
[2021-05-27] MEDS: DONEPEZIL 5 MG TABLET PO SCH (22:19)
[2021-05-27] MEDS: ATORVASTATIN 80 MG TABLET PO SCH (22:19)
[2021-05-28] MEDS: ALBUTEROL/IPRATROPIUM 3 ML NEB RESP TX SCH ×2 (00:04→07:42)
[2021-05-28 06:44] LABS: Basophils # 0.1 10*3/uL (0.0-0.2); Eosinophils # 0.2 10*3/uL (0.0-0.87); Eosinophils % 3.2 % (0.00-10.9); Hematocrit 36.1 VOL% (35.7-47.0); Hemoglobin 10.9 GM/DL (12.0-16.0); Immature Granulocytes % 0.5 %; Immature Granulocytes Absolute 0.03 #; Lymphocytes # 0.8 10*3/uL (1.4-4.0); Lymphocytes % 13.5 % (21.3-54.2); Mean Corpuscular HGB Conc 30.2 GM/DL (32-36); Mean Corpuscular Volume 92.3 FL (87-102); Mean Platelet Volume 9.9 FL (9.6-12.0); Monocytes % 8.9 % (1.7-12.7); Neutrophils % 72.9 % (38.7-73.9); Platelet Count 322 T/CUMM (130-400); Red Blood Count 3.91 MC/CUMM (3.8-5.5); Red Cell Distribution Width 15.8 % (9.3-17.3); White Blood Count 6.2 T/CUMM (4-12)
[2021-05-28 07:16] LABS: Albumin 1.9 G/DL (3.4-5.0); Bilirubin,Total 0.4 MG/DL (0.20-1.00); Calcium 7.8 MG/DL (8.5-10.1); Osmolality,Calculated 281.5 MOS/KG (273-304); Total Protein 5.9 G/DL (6.4-8.2)
[2021-05-28] MEDS: CEFEPIME 1,000 MG in SODIUM CHLORIDE 0.9% 100 ML IV SCH ×2 (08:51→12:46)
[2021-05-28] MEDS: HEPARIN 5,000 UNIT/1 ML VIAL SUBCUT SCH (08:51)
[2021-05-28] MEDS: PANTOPRAZOLE 40 MG TABLET PO SCH (08:52)
[2021-05-28] MEDS: cloNIDine 0.1 MG TABLET PO SCH (08:52)
[2021-05-28] MEDS: ASPIRIN 325 MG TABLET PO SCH (08:52)
[2021-05-28] MEDS: ACETAMINOPHEN 325 MG TABLET PO PRN (08:56)
[2021-05-28 12:07] VITALS: BP 139/69
== END 2021-05-28 13:02 | disposition home or self-care (01) | DRG 193 ==
LOC: N.ED 09:57 → N.EDINP 09:57 → SUATTDRO 12:06 → N.EDINP 13:59 → N.3E 14:21 → SUATTDRO 05-23 10:31
PROVIDERS: ADMIT Emergency Medicine; ATTEND Internal Medicine

== ENCOUNTER 2021-07-15 02:36 | Inpatient (IN) ==
[2021-07-15] MEDS ORDERED: ONDANSETRON 4 MG/2 ML VIAL IV STA (03:02)
[2021-07-15] MEDS ORDERED: MORPHINE 2 MG/1 ML SYRINGE IV STA (03:02)
[2021-07-15] MEDS ORDERED: NITROGLYCERIN 2% OINT 1 INCH/GM PACK TOP STA (03:02)
[2021-07-15] MEDS ORDERED: ASPIRIN 325 MG TABLET PO STA (03:02)
[2021-07-15] MEDS ORDERED: hydrALAZINE 20 MG/1 ML VIAL IV STA (03:02)
[2021-07-15] MEDS ORDERED: methylPREDNISolone SOD SUC 125 MG/2 ML VIAL IV STA (03:04)
[2021-07-15] MEDS ORDERED: ALBUTEROL NEB SOLN 5 MG/ML 20 ML/BOTTLE CONT NEB STA (03:04)
[2021-07-15] MEDS ORDERED: IPRATROPIUM 500 MCG/2.5 ML NEB RESP TX STA (03:04)
[2021-07-15 03:05] LABS: Basophils % 0.5 % (0.0-0.8); Eosinophils # 0.1 10*3/uL (0.0-0.87); Hematocrit 39.3 VOL% (35.7-47.0); Hemoglobin 12.1 GM/DL (12.0-16.0); Immature Granulocytes % 0.3 %; Immature Granulocytes Absolute 0.03 #; Lymphocytes # 1.1 10*3/uL (1.4-4.0); Lymphocytes % 12.4 % (21.3-54.2); Mean Corpuscular HGB Conc 30.8 GM/DL (32-36); Mean Platelet Volume 10.2 FL (9.6-12.0); Monocytes # 0.6 10*3/uL (0.11-0.8); Monocytes % 7.1 % (1.7-12.7); Neutrophils % 78.7 % (38.7-73.9); Platelet Count 302 T/CUMM (130-400); Red Blood Count 4.18 MC/CUMM (3.8-5.5); Red Cell Distribution Width 15.8 % (9.3-17.3); White Blood Count 8.7 T/CUMM (4-12)
[2021-07-15 03:15] LABS: PT Patient Result 11.4 SECS (10.5-12.0); Partial Thromboplastin Time 27.6 SECS (23.8-32.1)
[2021-07-15] MEDS ORDERED: amLODIPine 5 MG TABLET PO STA (03:23)
[2021-07-15] MEDS ORDERED: niCARdipine INJ 25 MG in SODIUM CHLORIDE 0.9% 240 ML IV PRN (03:23)
[2021-07-15 03:34] LABS: Albumin 3.3 G/DL (3.4-5.0); Bilirubin,Total 0.5 MG/DL (0.20-1.00); Calcium 9.4 MG/DL (8.5-10.1); Osmolality,Calculated 292.4 MOS/KG (273-304); Potassium 5.3 MMOL/L (3.5-5.1); Total Protein 7.6 G/DL (6.4-8.2)
[2021-07-15 04:47] LABS: Arterial Base Excess iSTAT 7 MMOL/L (-2.5-2.5); Arterial Bicarbonate iSTAT 31.4 MMOL/L (20-26); Arterial O2 Saturation iSTAT 98 % (95-100); Arterial PCO2 iSTAT 42 MM HG (35-48); Arterial PO2 iSTAT 90 MM HG (80-95); Arterial Total CO2 iSTAT 33 MMO/L (23-27); Arterial pH iSTAT 7.483 (7.35-7.45)
[2021-07-15] MEDS ORDERED: DEXTROSE 10% 250 ML BAG IV PRN (05:01)
[2021-07-15] MEDS ORDERED: ACETAMINOPHEN 325 MG TABLET PO PRN (05:01)
[2021-07-15] MEDS ORDERED: MORPHINE 2 MG/1 ML SYRINGE IV PRN (05:01)
[2021-07-15] MEDS ORDERED: GLUCAGON 1 MG VIAL IM PRN (05:01)
[2021-07-15] MEDS ORDERED: NICOTINE 21 MG/24 HR PATCH TRANSDERM PRN (05:01)
[2021-07-15] MEDS ORDERED: ONDANSETRON 4 MG/2 ML VIAL IV PRN (05:01)
[2021-07-15 06:16] LABS: Hepatitis B Core IgM Quant 0.71 Index; Hepatitis B Surface Ag Quant < 0.10 Index; Hepatitis B Surface Ag Result Non-Reactive (NonReactive); Hepatitis C Virus Ab Quant 0.02 Index; Hepatitis C Virus Ab Result Non-Reactive (NonReactive)
[2021-07-15] MEDS: LEVOFLOXACIN INJ 500 MG/100 ML PREMIX IV SCH (06:49)
[2021-07-15] MEDS: ALBUTEROL/IPRATROPIUM 3 ML NEB RESP TX SCH ×3 (08:09→19:00)
[2021-07-15 09:09] LABS: Barbiturates Screen,Urine Negative (Negative); Benzodiazepines Screen,Urine Negative (Negative); Cannabinoid Screen,Urine Negative (Negative); Opiate Screen,Urine Negative (Negative); Phencyclidine Screen,Urine Negative (Negative)
[2021-07-15] MEDS: PANTOPRAZOLE 40 MG TABLET PO SCH (09:14)
[2021-07-15] MEDS: HEPARIN 5,000 UNIT/1 ML VIAL SUBCUT SCH ×2 (09:15→20:45)
[2021-07-15] MEDS ORDERED: HEPARIN 10,000 UNIT/10 ML VIAL IV SCH (16:30)
[2021-07-15] MEDS ORDERED: ZIPRASIDONE 20 MG/1 ML VIAL IM PRN (17:06)
[2021-07-15] MEDS ORDERED: traZODone 50 MG TABLET PO PRN (17:06)
[2021-07-15] MEDS: methylPREDNISolone SOD SUC 40 MG/1 ML VIAL IV SCH (17:22)
[2021-07-15] MEDS: cloNIDine 0.1 MG TABLET PO SCH (20:45)
[2021-07-15] MEDS: ATORVASTATIN 80 MG TABLET PO SCH (20:45)
[2021-07-15] MEDS ORDERED: DONEPEZIL 5 MG TABLET PO SCH (21:00)
[2021-07-15] MEDS ORDERED: hydrALAZINE 25 MG TABLET PO SCH (21:00)
[2021-07-16] MEDS: ALBUTEROL/IPRATROPIUM 3 ML NEB RESP TX SCH ×4 (02:01→21:28)
[2021-07-16] MEDS: methylPREDNISolone SOD SUC 40 MG/1 ML VIAL IV SCH ×2 (04:05→15:31)
[2021-07-16 04:22] LABS: Basophils % 0.3 % (0.0-0.8); Eosinophils % 0.4 % (0.00-10.9); Hematocrit 34.9 VOL% (35.7-47.0); Hemoglobin 10.4 GM/DL (12.0-16.0); Immature Granulocytes % 0.4 %; Immature Granulocytes Absolute 0.04 #; Lymphocytes # 0.9 10*3/uL (1.4-4.0); Lymphocytes % 9.5 % (21.3-54.2); Mean Corpuscular HGB Conc 29.8 GM/DL (32-36); Mean Corpuscular Volume 94.6 FL (87-102); Mean Platelet Volume 10.9 FL (9.6-12.0); Monocytes # 0.7 10*3/uL (0.11-0.8); Monocytes % 7.2 % (1.7-12.7); Neutrophils % 82.2 % (38.7-73.9); Platelet Count 277 T/CUMM (130-400); Red Blood Count 3.69 MC/CUMM (3.8-5.5); White Blood Count 9.1 T/CUMM (4-12)
[2021-07-16 04:48] LABS: Alanine Aminotransferase 67 U/L (13-56); Albumin 2.5 G/DL (3.4-5.0); Alkaline Phosphatase 168 U/L (45-117); Aspartate Amino Transferase 34 U/L (0-37); Bilirubin,Total < 0.39 MG/DL (0.20-1.00); Blood Urea Nitrogen 43 MG/DL (7-18); Calcium 8.1 MG/DL (8.5-10.1); Carbon Dioxide 28 MMOL/L (21-32); Chloride 107 MMOL/L (98-107); Glucose 118 MG/DL (74-106); Osmolality,Calculated 290.4 MOS/KG (273-304); Potassium 5.4 MMOL/L (3.5-5.1); Sodium 140 MMOL/L (136-145); Total Protein 6.3 G/DL (6.4-8.2)
[2021-07-16] MEDS: cloNIDine 0.1 MG TABLET PO SCH ×2 (09:01→21:25)
[2021-07-16] MEDS: hydrALAZINE 25 MG TABLET PO SCH ×3 (09:01→21:25)
[2021-07-16] MEDS: PANTOPRAZOLE 40 MG TABLET PO SCH (09:01)
[2021-07-16] MEDS: HEPARIN 5,000 UNIT/1 ML VIAL SUBCUT SCH ×2 (09:01→21:00)
[2021-07-16] MEDS: hydrALAZINE 20 MG/1 ML VIAL IV PRN (17:26)
[2021-07-16] MEDS: ATORVASTATIN 80 MG TABLET PO SCH (21:26)
[2021-07-17] MEDS: ALBUTEROL/IPRATROPIUM 3 ML NEB RESP TX SCH ×4 (01:41→19:50)
[2021-07-17] MEDS: methylPREDNISolone SOD SUC 40 MG/1 ML VIAL IV SCH ×2 (04:20→17:24)
[2021-07-17 05:22] LABS: Basophils % 0.2 % (0.0-0.8); Eosinophils # 0.1 10*3/uL (0.0-0.87); Eosinophils % 0.7 % (0.00-10.9); Hematocrit 32.5 VOL% (35.7-47.0); Immature Granulocytes % 0.7 %; Immature Granulocytes Absolute 0.06 #; Lymphocytes # 1.2 10*3/uL (1.4-4.0); Lymphocytes % 13.1 % (21.3-54.2); Mean Corpuscular HGB Conc 30.8 GM/DL (32-36); Mean Corpuscular Volume 94.5 FL (87-102); Mean Platelet Volume 10.6 FL (9.6-12.0); Monocytes # 0.7 10*3/uL (0.11-0.8); Neutrophils % 77.3 % (38.7-73.9); Platelet Count 281 T/CUMM (130-400); Red Blood Count 3.44 MC/CUMM (3.8-5.5); Red Cell Distribution Width 16.1 % (9.3-17.3); White Blood Count 8.8 T/CUMM (4-12)
[2021-07-17 05:42] LABS: Albumin 2.5 G/DL (3.4-5.0); Bilirubin,Total 0.4 MG/DL (0.20-1.00); Calcium 8.3 MG/DL (8.5-10.1); Osmolality,Calculated 300.4 MOS/KG (273-304); Potassium 5.6 MMOL/L (3.5-5.1)
[2021-07-17] MEDS: LEVOFLOXACIN INJ 500 MG/100 ML PREMIX IV SCH (06:41)
[2021-07-17] MEDS: hydrALAZINE 20 MG/1 ML VIAL IV PRN ×2 (08:26→21:42)
[2021-07-17] MEDS ORDERED: SODIUM POLYSTYRENE SULFATE 15 GM/60 ML BOTTLE PO STA (10:55)
[2021-07-17] MEDS: hydrALAZINE 25 MG TABLET PO SCH (11:42)
[2021-07-17] MEDS: cloNIDine 0.1 MG TABLET PO SCH ×2 (11:42→21:41)
[2021-07-17] MEDS: PANTOPRAZOLE 40 MG TABLET PO SCH (11:42)
[2021-07-17] MEDS: HEPARIN 5,000 UNIT/1 ML VIAL SUBCUT SCH ×2 (11:42→21:42)
[2021-07-17] MEDS: ATORVASTATIN 80 MG TABLET PO SCH (21:41)
[2021-07-18] MEDS: ALBUTEROL/IPRATROPIUM 3 ML NEB RESP TX SCH ×3 (00:31→13:00)
[2021-07-18] MEDS: methylPREDNISolone SOD SUC 40 MG/1 ML VIAL IV SCH ×2 (03:52→15:04)
[2021-07-18 05:23] LABS: Basophils % 0.1 % (0.0-0.8); Eosinophils % 0.3 % (0.00-10.9); Hematocrit 32.5 VOL% (35.7-47.0); Hemoglobin 10.1 GM/DL (12.0-16.0); Immature Granulocytes % 0.4 %; Immature Granulocytes Absolute 0.03 #; Lymphocytes # 0.8 10*3/uL (1.4-4.0); Lymphocytes % 9.9 % (21.3-54.2); Mean Corpuscular HGB Conc 31.1 GM/DL (32-36); Mean Corpuscular Volume 92.9 FL (87-102); Mean Platelet Volume 10.8 FL (9.6-12.0); Monocytes # 0.5 10*3/uL (0.11-0.8); Monocytes % 5.9 % (1.7-12.7); Neutrophils % 83.4 % (38.7-73.9); Platelet Count 298 T/CUMM (130-400); Red Cell Distribution Width 16.1 % (9.3-17.3); White Blood Count 7.6 T/CUMM (4-12)
[2021-07-18 05:47] LABS: Calcium 7.9 MG/DL (8.5-10.1); Osmolality,Calculated 304.8 MOS/KG (273-304); Potassium 5.9 MMOL/L (3.5-5.1)
[2021-07-18 08:31] VITALS: BP 183/100
[2021-07-18] MEDS: hydrALAZINE 20 MG/1 ML VIAL IV PRN (11:17)
[2021-07-18] MEDS: cloNIDine 0.1 MG TABLET PO SCH (13:11)
[2021-07-18] MEDS: PANTOPRAZOLE 40 MG TABLET PO SCH (13:12)
[2021-07-18] MEDS: HEPARIN 5,000 UNIT/1 ML VIAL SUBCUT SCH (13:13)
== END 2021-07-18 16:18 | disposition home or self-care (01) | DRG 291 ==
LOC: N.ED 02:36 → N.EDINP 05:01 → SUATTDRO 05:01 → N.CC 13:05 → N.TELEN 07-16 18:13
PROVIDERS: ADMIT Internal Medicine; ATTEND Internal Medicine

== ENCOUNTER 2021-08-22 06:53 | Inpatient (IN) ==
[2021-08-22] MEDS ORDERED: INSULIN REGULAR 100 UNIT/ML ONE (06:57)
[2021-08-22] MEDS ORDERED: NOREPINEPHRINE 8 MG in SODIUM CHLORIDE 0.9% 242 ML IV PRN (07:07)
[2021-08-22] MEDS ORDERED: NOREPINEPHRINE 4 MG/4 ML VIAL IV ONE (07:09)
[2021-08-22 07:20] LABS: Arterial Base Excess iSTAT -17 MMOL/L (-2.5-2.5); Arterial Bicarbonate iSTAT 18.4 MMOL/L (20-26); Arterial O2 Saturation iSTAT 98 % (95-100); Arterial PCO2 iSTAT 113 MM HG (35-48); Arterial PO2 iSTAT 206 MM HG (80-95); Arterial Total CO2 iSTAT 22 MMO/L (23-27); Arterial pH iSTAT 6.821 (7.35-7.45)
[2021-08-22] MEDS ORDERED: SODIUM BICARBONATE 50 MEQ/50 ML VIAL IV STA (07:25)
[2021-08-22 07:32] LABS: Basophils % 0.3 % (0.0-0.8); Eosinophils # 0.1 10*3/uL (0.0-0.87); Eosinophils % 0.5 % (0.00-10.9); Hematocrit 35.4 VOL% (35.7-47.0); Immature Granulocytes % 2.4 %; Immature Granulocytes Absolute 0.24 #; Lymphocytes # 5.4 10*3/uL (1.4-4.0); Lymphocytes % 53.3 % (21.3-54.2); Mean Corpuscular HGB Conc 27.7 GM/DL (32-36); Mean Corpuscular Volume 107.3 FL (87-102); Mean Platelet Volume 11.3 FL (9.6-12.0); Monocytes # 0.4 10*3/uL (0.11-0.8); Monocytes % 3.7 % (1.7-12.7); NRBC # 0.02 10*3/uL; Neutrophils % 39.8 % (38.7-73.9); Platelet Count 175 T/CUMM (130-400); Red Cell Distribution Width 15.4 % (9.3-17.3); White Blood Count 10.2 T/CUMM (4-12)
[2021-08-22 07:33] LABS: Hemoglobin 9.8 GM/DL (12.0-16.0)
[2021-08-22] MEDS ORDERED: ALBUTEROL 2.5 MG/3 ML NEB RESP TX PRN (07:51)
[2021-08-22 08:07] LABS: Albumin 2.1 G/DL (3.4-5.0); Bilirubin,Total 0.4 MG/DL (0.20-1.00); Calcium 12.9 MG/DL (8.5-10.1); Osmolality,Calculated 313.8 MOS/KG (273-304); Total Protein 4.7 G/DL (6.4-8.2)
[2021-08-22 08:12] LABS: Potassium 7.8 MMOL/L (3.5-5.1)
[2021-08-22] MEDS ORDERED: CISATRACURIUM 10 MG/5 ML VIAL IV PRN (08:19)
[2021-08-22 08:21] LABS: Arterial Base Excess iSTAT -11 MMOL/L (-2.5-2.5); Arterial Bicarbonate iSTAT 18.2 MMOL/L (20-26); Arterial O2 Saturation iSTAT 100 % (95-100); Arterial PCO2 iSTAT 57 MM HG (35-48); Arterial PO2 iSTAT 279 MM HG (80-95); Arterial Total CO2 iSTAT 20 MMO/L (23-27)
[2021-08-22] MEDS ORDERED: GLUCAGON 1 MG VIAL IM PRN (08:23)
[2021-08-22] MEDS ORDERED: POTASSIUM CHLORIDE RIDER 10 MEQ/100 ML PREMIX IV PRN (08:58)
[2021-08-22] MEDS ORDERED: MAGNESIUM SULF RIDER 4 GM/100 ML PREMIX IV PRN (08:58)
[2021-08-22] MEDS ORDERED: POTASSIUM CHLORIDE RIDER 20 MEQ/100 ML PREMIX IV PRN (08:58)
[2021-08-22] MEDS ORDERED: MAGNESIUM SULF RIDER 2 GM/50 ML PREMIX IV PRN (08:58)
[2021-08-22] MEDS: INSULIN REGULAR 100 UNIT/ML IV SCH ×8 (09:00→22:26)
[2021-08-22 09:14] LABS: ABG HCO3 15.1 MMOL/L (20-26); ABG Oxygen Saturation 99.1 % (95-100); ABG PCO2 45.3 MM HG (35-48); ABG TCO2 15.3 MMOL/L (23-27)
[2021-08-22 09:16] LABS: ABG PH 7.169 (7.35-7.45)
[2021-08-22] MEDS: MIDAZOLAM 100 MG in SODIUM CHLORIDE 0.9% 80 ML IV PRN (09:23)
[2021-08-22] MEDS: fentaNYL INJ 1,250 MCG in SODIUM CHLORIDE 0.9% 225 ML IV PRN (09:24)
[2021-08-22 09:26] LABS: Basophils % 0.4 % (0.0-0.8); Eosinophils # 0.1 10*3/uL (0.0-0.87); Eosinophils % 0.5 % (0.00-10.9); Hematocrit 37.9 VOL% (35.7-47.0); Hemoglobin 11.2 GM/DL (12.0-16.0); Immature Granulocytes % 7.3 %; Immature Granulocytes Absolute 0.71 #; Lymphocytes # 2.2 10*3/uL (1.4-4.0); Lymphocytes % 22.3 % (21.3-54.2); Mean Corpuscular HGB Conc 29.6 GM/DL (32-36); Mean Corpuscular Volume 101.6 FL (87-102); Mean Platelet Volume 10.9 FL (9.6-12.0); Monocytes # 0.2 10*3/uL (0.11-0.8); Monocytes % 2.4 % (1.7-12.7); NRBC # 0.02 10*3/uL; Neutrophils % 67.1 % (38.7-73.9); Platelet Count 168 T/CUMM (130-400); Red Blood Count 3.73 MC/CUMM (3.8-5.5); Red Cell Distribution Width 15.3 % (9.3-17.3); White Blood Count 9.7 T/CUMM (4-12)
[2021-08-22] MEDS: FAMOTIDINE 20 MG/2 ML VIAL IV SCH (09:26)
[2021-08-22] MEDS ORDERED: SODIUM BICARBONATE 50 MEQ/50 ML VIAL IV ONE (09:28)
[2021-08-22 09:39] LABS: CKMB % 2.72 %
[2021-08-22 09:40] LABS: High Sensitive Troponin I* 215.8 ng/L (0-54)
[2021-08-22 09:46] LABS: INR 2.3; PT Patient Result 23.5 SECS (10.5-12.0)
[2021-08-22 09:47] LABS: Band Neutrophils 3 % (0-10); Eosinophils 1 % (0-10); Lymphocytes 25 % (20-55); Platelet Estimate Adequate; Total Cells Counted 100
[2021-08-22 09:48] LABS: Partial Thromboplastin Time 117.7 SECS (23.7-32.9)
[2021-08-22] MEDS ORDERED: ENOXAPARIN 30 MG/0.3 ML SYRINGE SUBCUT SCH (10:00)
[2021-08-22 10:13] LABS: Albumin 2.6 G/DL (3.4-5.0); Bilirubin,Total 0.9 MG/DL (0.20-1.00); Calcium 9.3 MG/DL (8.5-10.1); Osmolality,Calculated 299.4 MOS/KG (273-304); Phosphorous 13.5 MG/DL (2.5-4.9); Total Protein 6.1 G/DL (6.4-8.2)
[2021-08-22 10:15] LABS: Potassium 6.2 MMOL/L (3.5-5.1)
[2021-08-22] MEDS ORDERED: HEPARIN 5,000 UNIT/1 ML VIAL IV SCH (10:30)
[2021-08-22] MEDS: MINERAL OIL/PETROLATUM OPH OINT 3.5 GM TUBE BOTH EYES SCH ×3 (10:36→20:51)
[2021-08-22] MEDS: DEXAMETHASONE 4 MG/1 ML VIAL IV SCH (10:55)
[2021-08-22 11:09] LABS: INR 2.6; PT Patient Result 27.2 SECS (10.5-12.0); Partial Thromboplastin Time 92.6 SECS (23.7-32.9)
[2021-08-22] MEDS ORDERED: SODIUM CHLORIDE 0.9% 1,000 ML IV ONE (11:26)
[2021-08-22] MEDS ORDERED: ALBUMIN 5% 25 GM/500 ML VIAL IV ONE (11:27)
[2021-08-22] MEDS: NOREPINEPHRINE 16 MG in SODIUM CHLORIDE 0.9% 234 ML IV PRN ×2 (11:52→17:47)
[2021-08-22] MEDS: HEPARIN DRIP 25,000 UNITS/500 ML PREMIX IV SCH (12:02)
[2021-08-22] MEDS: DEXTROSE 50% 25 GM/50 ML SYRINGE IV PRN ×2 (12:26→22:29)
[2021-08-22] MEDS ORDERED: HEPARIN 10,000 UNIT/10 ML VIAL IV PRN (13:44)
[2021-08-22 14:56] LABS: Basophils % 0.2 % (0.0-0.8); Eosinophils % 0.1 % (0.00-10.9); Hematocrit 39.8 VOL% (35.7-47.0); Immature Granulocytes Absolute 0.17 #; Lymphocytes # 0.4 10*3/uL (1.4-4.0); Lymphocytes % 2.3 % (21.3-54.2); Mean Corpuscular HGB Conc 30.2 GM/DL (32-36); Mean Corpuscular Volume 100.3 FL (87-102); Monocytes # 0.3 10*3/uL (0.11-0.8); Monocytes % 1.5 % (1.7-12.7); Neutrophils % 94.9 % (38.7-73.9); Platelet Count 189 T/CUMM (130-400); Red Blood Count 3.97 MC/CUMM (3.8-5.5); Red Cell Distribution Width 15.4 % (9.3-17.3); White Blood Count 17.7 T/CUMM (4-12)
[2021-08-22 15:29] LABS: Blood Urea Nitrogen 34 MG/DL (7-18); CKMB % 6.28 %; Calcium 7.8 MG/DL (8.5-10.1); Carbon Dioxide 25 MMOL/L (21-32); Chloride 105 MMOL/L (98-107); Glucose 87 MG/DL (74-106); Osmolality,Calculated 287.3 MOS/KG (273-304); Potassium 3.7 MMOL/L (3.5-5.1); Sodium 141 MMOL/L (136-145)
[2021-08-22 15:59] LABS: Elliptocytes Few; Eosinophils 1 % (0-10); Lymphocytes 7 % (20-55); Metamyelocytes 3 %; Myelocytes 1 %; Platelet Estimate Normal; Total Cells Counted 100
[2021-08-22 16:26] LABS: ABG Base Excess -4.4 MMOL/L (-2.5-2.5); ABG HCO3 20.7 MMOL/L (20-26); ABG Oxygen Saturation 94.5 % (95-100); ABG PCO2 44.7 MM HG (35-48); ABG PO2 88.4 MM HG (80-95); ABG TCO2 19.9 MMOL/L (23-27)
[2021-08-22 20:59] LABS: Basophils # 0.1 10*3/uL (0.0-0.2); Basophils % 0.3 % (0.0-0.8); Eosinophils % 0.1 % (0.00-10.9); Hematocrit 39.2 VOL% (35.7-47.0); Hemoglobin 11.8 GM/DL (12.0-16.0); Immature Granulocytes % 2.3 %; Immature Granulocytes Absolute 0.42 #; Lymphocytes # 0.7 10*3/uL (1.4-4.0); Lymphocytes % 3.5 % (21.3-54.2); Mean Corpuscular HGB Conc 30.1 GM/DL (32-36); Mean Corpuscular Volume 99.7 FL (87-102); Mean Platelet Volume 9.9 FL (9.6-12.0); Monocytes # 0.8 10*3/uL (0.11-0.8); Monocytes % 4.2 % (1.7-12.7); Neutrophils % 89.6 % (38.7-73.9); Platelet Count 183 T/CUMM (130-400); Red Blood Count 3.93 MC/CUMM (3.8-5.5); Red Cell Distribution Width 15.6 % (9.3-17.3); White Blood Count 18.5 T/CUMM (4-12)
[2021-08-22 21:23] LABS: Platelet Estimate Adequate
[2021-08-22 21:25] LABS: Acanthocytes 1+
[2021-08-22 21:31] LABS: Lymphocytes 5 % (20-55); Total Cells Counted 100
[2021-08-22 21:32] LABS: CKMB % 10.96 %; Calcium 7.8 MG/DL (8.5-10.1); Osmolality,Calculated 296.8 MOS/KG (273-304); Potassium 4.5 MMOL/L (3.5-5.1)
[2021-08-22 21:36] LABS: High Sensitive Troponin I* 5070.4 ng/L (0-54)
[2021-08-23] MEDS: NOREPINEPHRINE 16 MG in SODIUM CHLORIDE 0.9% 234 ML IV PRN ×4 (00:11→16:33)
[2021-08-23] MEDS: INSULIN REGULAR 100 UNIT/ML IV SCH ×9 (00:32→17:24)
[2021-08-23 02:28] LABS: ABG Base Excess -15.8 MMOL/L (-2.5-2.5); ABG HCO3 12.5 MMOL/L (20-26); ABG Oxygen Saturation 93.8 % (95-100)
[2021-08-23 02:30] LABS: ABG PH 7.137 (7.35-7.45)
[2021-08-23] MEDS ORDERED: SODIUM BICARBONATE 50 MEQ/50 ML VIAL IV ONE ×2 (02:39→14:09)
[2021-08-23 03:00] LABS: Basophils % 0.2 % (0.0-0.8); Hemoglobin 11.5 GM/DL (12.0-16.0); Immature Granulocytes % 2.2 %; Immature Granulocytes Absolute 0.37 #; Lymphocytes # 0.7 10*3/uL (1.4-4.0); Lymphocytes % 4.5 % (21.3-54.2); Mean Corpuscular HGB Conc 29.3 GM/DL (32-36); Mean Corpuscular Volume 102.1 FL (87-102); Mean Platelet Volume 10.4 FL (9.6-12.0); Monocytes # 0.6 10*3/uL (0.11-0.8); Monocytes % 3.7 % (1.7-12.7); NRBC # 0.02 10*3/uL; Neutrophils % 89.4 % (38.7-73.9); Platelet Count 182 T/CUMM (130-400); Red Blood Count 3.84 MC/CUMM (3.8-5.5); Red Cell Distribution Width 15.5 % (9.3-17.3); White Blood Count 16.6 T/CUMM (4-12)
[2021-08-23 03:06] LABS: Blood Urea Nitrogen 59 MG/DL (7-18); CKMB % 13.34 %; Carbon Dioxide 14 MMOL/L (21-32); Chloride 107 MMOL/L (98-107); Glucose 136 MG/DL (74-106); Potassium 4.7 MMOL/L (3.5-5.1); Sodium 143 MMOL/L (136-145)
[2021-08-23 03:07] LABS: Hematocrit 39.2 VOL% (35.7-47.0)
[2021-08-23 03:11] LABS: Albumin 2.4 G/DL (3.4-5.0); Calcium 7.7 MG/DL (8.5-10.1); Potassium 4.7 MMOL/L (3.5-5.1); Total Protein 5.4 G/DL (6.4-8.2)
[2021-08-23 03:17] LABS: Calcium 7.8 MG/DL (8.5-10.1)
[2021-08-23 03:22] LABS: PT Patient Result 54.7 SECS (10.5-12.0)
[2021-08-23 03:23] LABS: INR 5.3; Partial Thromboplastin Time 178.9 SECS (23.7-32.9)
[2021-08-23 03:28] LABS: Band Neutrophils 1 % (0-10); Lymphocytes 5 % (20-55); Platelet Estimate Adequate; Total Cells Counted 100
[2021-08-23] MEDS: MIDAZOLAM 100 MG in SODIUM CHLORIDE 0.9% 80 ML IV PRN (03:54)
[2021-08-23] MEDS: DEXTROSE 50% 25 GM/50 ML SYRINGE IV PRN ×3 (06:32→15:50)
[2021-08-23] MEDS: fentaNYL INJ 1,250 MCG in SODIUM CHLORIDE 0.9% 225 ML IV PRN (07:50)
[2021-08-23] MEDS: FAMOTIDINE 20 MG/2 ML VIAL IV SCH (08:13)
[2021-08-23] MEDS: DEXAMETHASONE 4 MG/1 ML VIAL IV SCH (08:13)
[2021-08-23] MEDS: MINERAL OIL/PETROLATUM OPH OINT 3.5 GM TUBE BOTH EYES SCH ×2 (08:14→14:07)
[2021-08-23 09:07] LABS: Mean Platelet Volume 10.8 FL (9.6-12.0); NRBC # 0.03 10*3/uL; Red Cell Distribution Width 15.7 % (9.3-17.3)
[2021-08-23 09:27] LABS: Basophils % 0.1 % (0.0-0.8); Hematocrit 38.5 VOL% (35.7-47.0); Immature Granulocytes % 1.3 %; Immature Granulocytes Absolute 0.22 #; Lymphocytes # 1.3 10*3/uL (1.4-4.0); Lymphocytes % 7.6 % (21.3-54.2); Mean Corpuscular HGB Conc 28.6 GM/DL (32-36); Mean Corpuscular Volume 103.8 FL (87-102); Monocytes # 0.4 10*3/uL (0.11-0.8); Monocytes % 2.4 % (1.7-12.7); Neutrophils % 88.6 % (38.7-73.9); Platelet Count 159 T/CUMM (130-400); Red Blood Count 3.71 MC/CUMM (3.8-5.5); White Blood Count 16.7 T/CUMM (4-12)
[2021-08-23 09:34] LABS: INR 4.5
[2021-08-23 09:37] LABS: Partial Thromboplastin Time 142.5 SECS (23.7-32.9)
[2021-08-23 09:38] LABS: Blood Urea Nitrogen 57 MG/DL (7-18); Carbon Dioxide 10 MMOL/L (21-32); Chloride 108 MMOL/L (98-107); Glucose 112 MG/DL (74-106); Osmolality,Calculated 306.6 MOS/KG (273-304); Potassium 4.6 MMOL/L (3.5-5.1); Sodium 146 MMOL/L (136-145)
[2021-08-23 09:39] LABS: Band Neutrophils 3 % (0-10); Lymphocytes 8 % (20-55); Nucleated Red Blood Cells 1 (0-5); Platelet Estimate Adequate; Total Cells Counted 100
[2021-08-23] MEDS ORDERED: DEXAMETHASONE 4 MG/1 ML VIAL IV SCH ×2 (10:00→14:30)
[2021-08-23] MEDS: HEPARIN DRIP 25,000 UNITS/500 ML PREMIX IV SCH (11:49)
[2021-08-23 13:39] VITALS: BP 93/62
[2021-08-23 14:04] LABS: ABG Base Excess -24.6 MMOL/L (-2.5-2.5); ABG HCO3 7.2 MMOL/L (20-26); ABG Oxygen Saturation 93.9 % (95-100); ABG PCO2 38.7 MM HG (35-48); ABG TCO2 7.8 MMOL/L (23-27); Glucose Heart Surgery 113 MG/DL (74-106); Hematocrit Heart Surgery 31.4 PERCENT (37-47); Hemoglobin Heart Surgery 10.2 G/DL (12.0-16.0); Potassium Heart/CVR 5.6 MMOL/L (3.5-5.1)
[2021-08-23 14:06] LABS: ABG PH 6.902 (7.35-7.45)
[2021-08-23 15:31] LABS: INR 2.6; Partial Thromboplastin Time 90.3 SECS (23.7-32.9)
[2021-08-23 15:35] LABS: Blood Urea Nitrogen 55 MG/DL (7-18); Carbon Dioxide 12 MMOL/L (21-32); Chloride 108 MMOL/L (98-107); Glucose 64 MG/DL (74-106); Osmolality,Calculated 308.1 MOS/KG (273-304); Potassium 5.5 MMOL/L (3.5-5.1); Sodium 149 MMOL/L (136-145)
[2021-08-23 15:49] LABS: Basophils % 0.1 % (0.0-0.8); Hematocrit 34.5 VOL% (35.7-47.0); Hemoglobin 9.9 GM/DL (12.0-16.0); Immature Granulocytes % 1.3 %; Immature Granulocytes Absolute 0.19 #; Lymphocytes # 1.4 10*3/uL (1.4-4.0); Lymphocytes % 9.6 % (21.3-54.2); Mean Corpuscular HGB Conc 28.7 GM/DL (32-36); Mean Corpuscular Volume 105.2 FL (87-102); Mean Platelet Volume 11.4 FL (9.6-12.0); Monocytes # 0.7 10*3/uL (0.11-0.8); Monocytes % 4.4 % (1.7-12.7); NRBC # 0.08 10*3/uL; Neutrophils % 84.6 % (38.7-73.9); Platelet Count 133 T/CUMM (130-400); Red Blood Count 3.28 MC/CUMM (3.8-5.5); Red Cell Distribution Width 15.7 % (9.3-17.3)
[2021-08-23 16:07] LABS: Band Neutrophils 21 % (0-10); Lymphocytes 19 % (20-55); Nucleated Red Blood Cells 1 (0-5)
[2021-08-23 16:08] LABS: Ovalocytes Slight
[2021-08-23 16:09] LABS: Acanthocytes Few; Burr Cells Slight
[2021-08-23 16:10] LABS: Macrocytosis Slight; Platelet Estimate Decreased; Total Cells Counted 100
[2021-08-23] MEDS ORDERED: METHYL SALICYLATE 60 ML BOTTLE TOP PRN (16:56)
[2021-08-23] MEDS ORDERED: EPINEPHrine 1 MG/10 ML SYRINGE IV ONE (17:43)
[2021-08-23] MEDS ORDERED: SODIUM BICARBONATE 50 MEQ/50 ML SYRINGE IV ONE (17:44)
== END 2021-08-23 18:03 | disposition expired | DRG 917 ==
LOC: N.ED 06:53 → N.EDINP 07:51 → N.ICU 08:20
PROVIDERS: ADMIT Internal Medicine; ATTEND Internal Medicine